=== PATIENT | female | born 1965 | race Caucasian/White ===

== ENCOUNTER → 2017-04-15 | Outpatient (CLI) | payer OTHER ==
--- NOTE | 2017-04-16 10:08 | MM ---
Reason for exam: screening (asymptomatic). Last mammogram was performed 1 year and 7 months ago. History: Patient is postmenopausal and had first child at age 34. Family history of breast cancer in mother at age 50 and breast cancer in maternal aunt at age 60. Physical Findings: A clinical breast exam by your physician is recommended on an annual basis and results should be correlated with mammographic findings. MG 3D Screening Mammo W/Cad Bilateral CC and MLO view(s) were taken. Prior study comparison: September 15, 2015, bilateral MG 3d screening mammo w/cad. September 24, 2012, CAD bilateral diagnostic mammogram. The breast tissue is heterogeneously dense. This may lower the sensitivity of mammography. There is no discrete abnormality. ASSESSMENT: Negative, BI-RAD 1 RECOMMENDATION: Routine screening mammogram of both breasts in 1 year.
== END | disposition home or self-care (01) ==
LOC: RADMAMWWP 15:51
PROVIDERS: ATTEND Family Medicine
DX: Z12.31 Encounter for screening mammogram for malignant neoplasm of breast (principal)
CPT/HCPCS: 77063; G0202

== ENCOUNTER → 2017-05-08 | Outpatient (CLI) | payer OTHER ==
--- NOTE | 2017-05-08 17:13 | MR ---
EXAMINATION TYPE: MR lumbar spine wo con DATE OF EXAM: 05/08/2017 COMPARISON: NONE HISTORY: Right Low back pain , Right Leg pain, for years TECHNIQUE: T1 and T2 axial and sagittal images of the lumbar spine are submitted. FINDINGS: There is no abnormal signal seen within the visualized spinal cord or paraspinal soft tissu es. At L1-2 there is no disc herniation, canal stenosis or foraminal encroachment. There is hypertrophic change of the facets. At L2-3 there is degenerative disc disease with hypertrophy of the facets and ligamentum flavum. Mild bilateral foraminal encroachment. No Canal stenosis. At L3-4 there is annular tear and central disc bulge or small protrusion with mild effacement of the toñito sac. Hypertrophic change of the facets and ligamentum flavum is seen. No foraminal encroachment. No Canal stenosis. At L4-5 there is moderate hypertrophy of the facets and ligamentum flavum. There is disc desiccation and annular tear. Neural foramina remain patent. Vertebral body hemangioma L4. Minimal broad-based ce ntral disc bulging. No canal stenosis. At L5-S1 there is no disc herniation, canal stenosis, or foraminal encroachment IMPRESSION: 1. Annular tear and central disc small protrusion at L3-L4 with mild effacement of thecal sac but no canal stenosis or foraminal encroachment. 2. Annular tear and broad-based disc bulging L4-L5 but no canal stenosis or foraminal encroachment. 3. Multilevel facet arthropathy.
== END | disposition home or self-care (01) ==
LOC: RADMRIMAIN 14:36
PROVIDERS: ATTEND Internal Medicine Rheumatology
DX: M51.16 Intervertebral disc disorders with radiculopathy, lumbar region (principal); M46.96 Unspecified inflammatory spondylopathy, lumbar region
CPT/HCPCS: 72148

== ENCOUNTER → 2017-09-25 | Outpatient (CLI) | payer OTHER ==
[2017-09-23 16:46] VITALS: BMI 26.7
--- NOTE | 2017-09-25 21:23 | P.CONS ---
History of Present Illness - Reason for Consult Consult date: 09/25/17 - History of Present Illness This is 52 years old female with a chronic history of severe low back pain, pain started more than 18 month,s ago , she denies any initiating event, pain intensity increased over time, she underwent physical therapy with minimal benefit, she stepped up physical therapy 3 weeks ago, intensity of the pain is 6 /10 increased with activity to 8/10, also she complained of right leg weakness, and feeling of burning sensation radiates from her back towards the right lower extremity, to the posterior lateral aspect of her right leg, she denies any fever or night sweats which she denies any change in the bowel movement or urination Past Medical History Past Medical History: Fibromyalgia, GERD/Reflux Additional Past Medical History / Comment(s): migraines History of Any Multi-Drug Resistant Organisms: None Reported Past Surgical History: Section, Tonsillectomy Additional Past Surgical History / Comment(s): sinus surgery Past Anesthesia/Blood Transfusion Reactions: Postoperative Nausea & Vomiting ( PONV) Past Psychological History: No Psychological Hx Reported Smoking Status: Never smoker Past Alcohol Use History: None Reported Past Drug Use History: None Reported - Past Family History Mother Family Medical History: Cancer Medications and Allergies Home Medications Medication Instructions Recorded Confirmed Type Ascorbic Acid [Vitamin C] 500 mg PO DAILY 09/23/17 09/25/17 History Calcium Carbonate [Calcium] 600 mg PO DAILY 09/23/17 09/25/17 History Cholecalciferol [Vitamin D3] 5,000 unit PO DAILY 09/23/17 09/25/17 History Folic Acid 1 mg PO DAILY 09/23/17 09/25/17 History Methotrexate Sodium [Methotrexate] 12.5 mg PO BARONE 09/23/17 09/25/17 History Vitamin B Complex 1 each PO DAILY 09/23/17 09/25/17 History Allergies Allergy/AdvReac Type Severity Reaction Status Date / Time amoxicillin AdvReac Mild Rapid Verified 09/25/17 12:31 Heart Rate Physical Exam Social history : not smoker , NO ETOH , NO Illegal drugs use . Review of Systems : 1- Constitutional : no chills , no fever , no night sweats , 2- Ears : no ear discharge , no change in hearing 3-Nose, Mouth ,Throat ; no bleeding gums, no sore throat , no epistaxis , 4-Cardiovascular : Denies chest pain, , no orthopnea , no palpitation 5-Respiratory : Denies cough , no dyspnea , no hemoptysis 6-Gastrointestinal :, no change in bowel habits , no coffee- ground emesis . 7-Genitourinary : No hematuria , no discharge , no incontinence, 8-Musculoskeletal : No gait dysfunction , report low back pain , 9- Neurological : no ataxia , no tremor , no sezure , 10-Psychatric , no suicidal ideation no hallucination 11- Endocrine : no cold intolerence , no polyuria , no polydypsia , 12-Hematologic : no easy bleeding , no easy brusing , 13-Allergic / immunology : no angioedema , no wheezing ,no allergic rhinitis 14-Integumentary : no brttle nails , no change hair / nails , no foot/leg ulcers . Physical Examinations : 1-Constitutional : Cooperative , not in acute distress . 2-HEENT : nech ; supple , no Lymphadenopathy , no Thyromegaly , :eyes , no icterus, no photophobia . ENT : , normal oropharynx , no Thrush 3- Respiratory : Chest clear to auscultations Bilaterally , no wheezing . 4- Cardiovascular : regular rate and rhythem , S1 , S2 , no S3 , no S4. 5- Gastrointestinal: abdomen soft no tenderness , no organomegally . 6- Genitourinary : Defferred . 7-Integumentary : No cellulitis , no ulcers , normal skin turgor , no cyanotic . 8- neurologic : Cranial nerve II to XII intact , no focal neurological deffecit 9-psychatric : alert , oriented X 3 , appropriate affect , intact judgment and insight . 10-Lymphatic : no Lymphadenopathy. 11- musculoskeltal: normal gait Cervical Spine motor stregnth in the deltoid and biceps, normal right side , normal Left side Lumber spine moter stegnth lower extremities ,thigh and legs 3-4/5 Right side , 5/5 Left side deep tendon reflexes : decreased Knee Jerk on the right side , decreased ankle Jerk on the right side positive lumber facet Loading Test Range of motion of the lumbar spine Flexion 30 degrees, extension 10 degrees strait leg raising test , positive at 30 degree on the right side ,and is negative on the left Fabere test positive RT and negative on the LT . Results Comments: MRI of the lumbar spine= L2-3 and L3-L4 or L4-L5 lumbar bulging disc disease, and lumbar facet hypertrophy, and annular tear at L3 4 Assessment and Plan Plan: Assessment and plan= lumbar radiculopathy, lumbar degenerative disc disease, lumbar facet arthropathy Patient could benefit from Lyrica 25 mg 3 times a day, ( she tried Neurontin in the past and she had side effects/depression from the Neurontin ) for this reason we can start her on Lyrica. Also patient could benefit from lumbar epidural steroid injections under fluoroscopy guidance Time with Patient: Greater than 30
== END | disposition home or self-care (01) ==
LOC: PNWHC3 11:51
PROVIDERS: ATTEND Specialist
DX: G89.29 Other chronic pain (principal); M54.5 Low back pain; M51.16 Intervertebral disc disorders with radiculopathy, lumbar region; M46.86 Other specified inflammatory spondylopathies, lumbar region; M79.7 Fibromyalgia; K21.9 Gastro-esophageal reflux disease without esophagitis; G43.909 Migraine, unspecified, not intractable, without status migrainosus; Z98.890 Other specified postprocedural states; Z79.891 Long term (current) use of opiate analgesic; Z88.0 Allergy status to penicillin
CPT/HCPCS: 99211

== ENCOUNTER 2017-10-22 06:47 | Day surgery (SDC) | payer OTHER ==
[2017-10-20 12:30] VITALS: BMI 26.6
[2017-10-22] MEDS ORDERED: LACTATED RINGERS 1,000 ML IV SCH (07:00)
[2017-10-22 07:24] VITALS: RESP 16; TEMP 98.1
[2017-10-22] MEDS ORDERED: LIDOCAINE 1% 20 ML VIAL (10MG/ML) FOR IV START INTRADERMA ONE (07:24)
[2017-10-22] MEDS ORDERED: ONDANSETRON 4 MG/2 ML VIAL IVP ONE (08:04)
--- NOTE | 2017-10-22 08:32 | P.PCN ---
Date of Procedure: 10/22/17 Procedure(s) Performed: PREOPERATIVE DIAGNOSIS: 1- Lumbar Degenerative Disc Diseases 2-Lumbar spondylosis with Facet arthropathy without myelopathy. 3-lumbar radiculopathy. POSTOPERATIVE DIAGNOSIS: 1-Lumber Degenerative Disc Diseases 2-Lumbar spondylosis with Facet arthropathy without myelopathy. 3-lumbar radiculopathy. PROCEDURE 1. Lumbar epidural steroid injection under fluoroscopic guidance at the L5-S1 level. 2. Lumbar epidurogram. ANESTHESIA: Local with 1% lidocaine 3 ml and , moderate sedation with intravenous Versed 2 mg ,and fentanyle 50 Mcg EBL: Minimal PROCEDURE INDICATION: The patient with low back pain and radiculitis symptoms unresponsive to conservative treatment. Fluoroscopy was used to optimize visualization of the needle placement and to maximize safety. PROCEDURE DESCRIPTION / TECHNIQUE: The patient was seen and identified in the preoperative area. Risks, benefits , complications including but not limited to infections ,bleeding ,allergic reaction to the medications ,nerve damage and not complete pain releife , and alternatives were discussed with the patient. The patient agreed to proceed with the procedure and signed the consent. IV was started, and vital signs were stable. Patient was taken to the OR and time out was completed. The patient was placed in the prone position on procedure table and a pillow was placed under the abdomen to reduce lumbar lordosis. The lumbosacral area was prepped and draped in the usual sterile fashion.ere closely monitored during the procedure. Conscious sedation was used during the procedure to decrease patients anxiety. Vital signs was monitered during the entire procedure. Using anterior-posterior fluoroscopy, the L5-S1 interlaminar space was identified and the skin over this site was marked and then infiltrated with 1% lidocaine subcutaneously. Subsequently, a 20-gauge Tuohy epidural needle was inserted and advanced toward the epidural space using the ``Loss of resistance technique and guided by AP and lateral fluoroscopy. The correct needle position in the epidural space was verified with the injection of 2 mL of the water soluble contrast dye Isovue 200 contrast and observing an excellent epidurogram with the epidural spread of the dye, after negative aspiration for blood and CSF and in the absence of paresthesias. Again after negative aspiration, a 6 ml mixture containing 20 mg of Dexamethasone and 2 ml of preservative free Normal Saline, and 2 ml of preservative free lidocaine 1% solution was injected and a washout of epidurogram was seen. Needle was withdrawn intact, skin was cleansed, and bandages were applied. COMPLICATIONS: None DISPOSITION / PLANS: The patient was placed in a supine position and transferred to the recovery area in a stable condition for observation. There was no evidence of lower extremity motor or sensory deficit after the procedure. Patient was discharged from the recovery room after meeting discharge criteria. Home discharge instructions were given to the patient by the staff. The patient was reexamined prior to discharge. The patient will schedule a follow up in the clinic in 2-4 weeks.
[2017-10-22] MEDS ORDERED: IV FLUID CONTINUATION 1,000 ML IV ONE (08:35)
[2017-10-22 08:53] VITALS: BP 127/84; PULSE 68
--- NOTE | 2017-10-22 09:25 | FL ---
Fluoroscopy HISTORY: Pain 4 seconds fluoroscopy time supplied to the referring clinician. 1 intraoperative C-arm images docume nt the procedure. See dictated report from anesthesia.
== END 2017-10-22 09:12 | disposition home or self-care (01) ==
LOC: ORPAIN 06:47
PROVIDERS: ATTEND Specialist
DX: G89.29 Other chronic pain (principal); K21.9 Gastro-esophageal reflux disease without esophagitis; N95.9 Unspecified menopausal and perimenopausal disorder; M51.16 Intervertebral disc disorders with radiculopathy, lumbar region; M79.7 Fibromyalgia; M47.26 Other spondylosis with radiculopathy, lumbar region; Z88.0 Allergy status to penicillin
CPT/HCPCS: 62323; J2250; J1100; J2405; J3010; Q9966; 99152

== ENCOUNTER 2017-11-19 07:58 | Day surgery (SDC) | payer OTHER ==
[2017-11-17 10:55] VITALS: BMI 26.6
[2017-11-19 08:23] VITALS: RESP 16; TEMP 97.7
[2017-11-19] MEDS ORDERED: LACTATED RINGERS 1,000 ML IV ONE (08:28)
[2017-11-19] MEDS ORDERED: LIDOCAINE 1% 20 ML VIAL (10MG/ML) FOR IV START INTRADERMA ONE (08:28)
[2017-11-19] MEDS ORDERED: ONDANSETRON 4 MG/2 ML VIAL ONE (08:30)
[2017-11-19] MEDS ORDERED: ONDANSETRON 4 MG/2 ML VIAL IVP ONE (08:32)
--- NOTE | 2017-11-19 08:56 | P.PCN ---
Date of Procedure: 11/19/17 Surgeon: Jim Womack Pathology: none sent Condition: stable Disposition: PACU Description of Procedure: PREOPERATIVE DIAGNOSIS: 1-Lumbar radiculitis. POSTOPERATIVE DIAGNOSIS: 1-Lumbar radiculitis. PROCEDURE 1. Lumbar epidural steroid injection under fluoroscopic guidance at the L4-L5 level. 2. Lumbar epidurogram. ANESTHESIA: Local with 1% lidocaine; IV sedation with Versed/fentanyl. EBL: Minimal PROCEDURE INDICATION: The patient with low back pain and radiculitis symptoms unresponsive to conservative treatment. No use of blood thinners, five days' relief from LESI #1. Fluoroscopy was used to optimize visualization of the needle placement and to maximize safety. PROCEDURE DESCRIPTION / TECHNIQUE: The patient was seen and identified in the preoperative area. Risks, benefits, complications, and alternatives were discussed with the patient, including but not limited to bleeding, infection, nerve damage, allergic reactions to medications, and incomplete pain relief. The patient agreed to proceed with the procedure and signed the consent after all questions were answered. IV was started, and vital signs were stable. Patient was taken to the OR and time out was completed to confirm patient position, procedure, laterality of pain, and allergies. The patient was placed in the prone position on procedure table and a pillow was placed under the abdomen to reduce lumbar lordosis. The lumbosacral area was prepped and draped in the usual sterile fashion. Critical pause was taken. Vital signs were closely monitored during the procedure. Conscious sedation was used during the procedure to decrease patients anxiety. Using anterior-posterior fluoroscopy, the L4-L5 interlaminar space was identified and the skin over this site was marked and then infiltrated with 1% lidocaine subcutaneously in a right paramedian fashion. Subsequently, a 20- gauge 3.5-inch Tuohy epidural needle was inserted and advanced toward the epidural space using the Loss of resistance technique and guided by AP and lateral fluoroscopy. The correct needle position in the epidural space was verified with the injection of 2 mL of the water soluble contrast dye Isovue 200 contrast and observing an excellent epidurogram with the epidural spread of the dye, after negative aspiration for blood and CSF and in the absence of paresthesias. Again after negative aspiration, a 6 ml mixture containing 40 mg of Depo Medrol and 3 ml of preservative free Normal Saline, and 2 ml of preservative free lidocaine 1% solution was injected and a washout of epidurogram was seen. Needle was withdrawn intact, skin was cleansed, and bandages were applied. COMPLICATIONS: None COMMENTS: DISPOSITION / PLANS: The patient was placed in a supine position and transferred to the recovery area in a stable condition for observation. There was no evidence of lower extremity motor or sensory deficit after the procedure. Patient was discharged from the recovery room after meeting discharge criteria. Home discharge instructions were given to the patient by the staff. The patient was reexamined prior to discharge and there were no issues. The patient will schedule LESI #3 in 3-4 weeks.
[2017-11-19] MEDS ORDERED: IV FLUID CONTINUATION 1,000 ML IV ONE (09:01)
[2017-11-19 09:04] VITALS: PULSE 71
[2017-11-19] MEDS ORDERED: LACTATED RINGERS 1,000 ML IV SCH (09:15)
[2017-11-19 09:31] VITALS: BP 120/79
--- NOTE | 2017-11-19 10:21 | FL ---
Fluoroscopy HISTORY: Pain 6 seconds fluoroscopy time supplied to the referring clinician. 3 intraoperative C-arm images docume nt the procedure. See dictated report from anesthesia.
== END 2017-11-19 09:44 | disposition home or self-care (01) ==
LOC: ORPAIN 07:58
PROVIDERS: ATTEND Anesthesiology
DX: G89.29 Other chronic pain (principal); M54.16 Radiculopathy, lumbar region; M06.9 Rheumatoid arthritis, unspecified; Z88.0 Allergy status to penicillin; Z79.899 Other long term (current) drug therapy
CPT/HCPCS: 62323; J2250; J1030; J2405; J3010; Q9966

== ENCOUNTER 2017-12-11 08:41 | Day surgery (SDC) | payer OTHER ==
[2017-12-09 09:25] VITALS: BMI 26.6
[2017-12-11 09:54] VITALS: RESP 18; TEMP 98.2
[2017-12-11] MEDS ORDERED: LIDOCAINE 1% 20 ML VIAL (10MG/ML) FOR IV START INTRADERMA ONE (10:05)
[2017-12-11] MEDS ORDERED: LACTATED RINGERS 1,000 ML IV ONE (10:05)
--- NOTE | 2017-12-11 10:49 | P.PCN ---
Date of Procedure: 12/11/17 Surgeon: Addy Reaves Description of Procedure: PREOPERATIVE DIAGNOSIS: 1- Lumbar Degenerative Disc Diseases 2-Lumbar spondylosis with Facet arthropathy without myelopathy POSTOPERATIVE DIAGNOSIS: 1-Lumber Degenerative Disc Diseases 2-Lumbar spondylosis with Facet arthropathy without myelopathy PROCEDURE Lumbar epidural steroid injection under fluoroscopic guidance at the L4-5 level. ANESTHESIA: Local with 1% lidocaine 3 ml and IV sedation with Versed 2 mg EBL: Minimal PROCEDURE INDICATION: The patient with low back pain and radiculitis symptoms unresponsive to conservative treatment. Fluoroscopy was used to optimize visualization of the needle placement and to maximize safety. She presented for her third lumbar epidural steroid injection. She reports significant benefit was given from her previous 2 injections. She continues to have pain in her back which radiates down her legs. PROCEDURE DESCRIPTION / TECHNIQUE: The patient was seen and identified in the preoperative area. Risks, benefits , complications including but not limited to infections ,bleeding ,allergic reaction to the medications ,nerve damage and not complete pain relief , and alternatives were discussed with the patient. The patient agreed to proceed with the procedure and signed the consent. IV was started, and vital signs were stable. Patient was taken to the OR and time out was completed. The patient was placed in the prone position on procedure table and a pillow was placed under the abdomen to reduce lumbar lordosis. The lumbosacral area was prepped and draped in the usual sterile fashion.ere closely monitored during the procedure. Conscious sedation was used during the procedure to decrease patient's anxiety. Vital signs was monitored during the entire procedure. Using anterior-posterior fluoroscopy, the L5-S1 interlaminar space was identified and the skin over this site was marked and then infiltrated with 1% lidocaine subcutaneously. Subsequently, a 20-gauge Tuohy epidural needle was inserted and advanced toward the epidural space using the Loss of resistance technique and guided by AP and lateral fluoroscopy. The correct needle position in the epidural space was verified with the injection of contrast. After negative aspiration for blood and CSF and in the absence of paresthesias. Again after negative aspiration, a 6 ml mixture containing 80 mg of Depo-Medrol and 3 mL of preservative-free normal saline. Needle was withdrawn intact, skin was cleansed, and bandages were applied. COMPLICATIONS: None DISPOSITION / PLANS: The patient was placed in a supine position and transferred to the recovery area in a stable condition for observation. There was no evidence of lower extremity motor or sensory deficit after the procedure. Patient was discharged from the recovery room after meeting discharge criteria. Home discharge instructions were given to the patient by the staff. The patient was reexamined prior to discharge. The patient will schedule a follow up in the clinic in 2-4 weeks.
[2017-12-11] MEDS ORDERED: IV FLUID CONTINUATION 1,000 ML IV ONE (10:55)
--- NOTE | 2017-12-11 11:12 | FL ---
EXAMINATION TYPE: FL guided pain mgmt statistic DATE OF EXAM: 12/11/2017 HISTORY: Flouroscopy time 1 seconds of fluoroscopy provided. IMPRESSION: 1. Fluoroscopy time.
[2017-12-11 11:17] VITALS: BP 128/91; PULSE 65
== END 2017-12-11 11:36 | disposition home or self-care (01) ==
LOC: ORPAIN 08:41
PROVIDERS: ATTEND Anesthesiology
DX: M51.16 Intervertebral disc disorders with radiculopathy, lumbar region (principal); M47.816 Spondylosis without myelopathy or radiculopathy, lumbar region; Z88.0 Allergy status to penicillin
CPT/HCPCS: 62323; J2250; J1030

== ENCOUNTER → 2018-01-29 | Outpatient (CLI) | payer OTHER ==
[2018-01-29 13:06] VITALS: BP 136/94; PULSE 77; RESP 16
--- NOTE | 2018-01-29 13:31 | P.PAINPG ---
Subjective Progress Note Date: 01/29/18 Principal diagnosis: Right-sided low back pain and right buttocks pain as well as leg pain down the right This a very pleasant 52-year-old woman with a history of low back pain and pain down her right leg who is undergone previous lumbar epidural steroid injections. She returns thereafter 3 these injections. She reports that she received nearly a 50% reduction of her symptoms from these injections. Now she complains of pain in her right buttocks area at a pinpoint location which radiates into her hip laterally and down her right leg on the extra dear surface. She denies any bowel or bladder dysfunction. She denies a significant myofascial weakness. She has recently participated in physical therapy is currently doing exercises at home on a daily basis. Objective - Vital Signs Vital signs: Vital Signs Temp Pulse 77 01/29/18 12:56 Resp 16 01/29/18 12:56 BP 136/94 01/29/18 12:56 Pulse Ox Intake & Output 01/28/18 01/29/18 01/29/18 18:59 06:59 18:59 Weight 77.111 kg - Exam General: The patient is alert and oriented. Patient is not sedateded Patient answers all question appropriately. Cardiac: Heart is regular in rate and rhythm Respiratory: Clear to auscultation. No audible wheezes. Abdomen: Soft nontender nondistended. Lower extremities: Strength is normal bilaterally. Sensation is normal bilaterally. Reflexes are preserved and symmetric bilaterally. Straight leg raise is negative bilaterally. She is tender to palpation over her right sacroiliac joint. Sacroiliac loading maneuvers are positive. Assessment and Plan (1) Pain of right sacroiliac joint Narrative/Plan: Plan of Care 1. Medications: Patient does not receive any pain medications from this clinic. I would not endorse the use of opiates for this clinical presentation. 2. Interventions: We will schedule the patient for right sacroiliac joint injection. 3. Referrals: None 4. Testing: None 5. Psychological: Patient denies significant depression or anxiety today. I would not refer her to a psychologist. Current Visit: Yes Status: Acute Code(s): M53.3 - SACROCOCCYGEAL DISORDERS, NOT ELSEWHERE CLASSIFIED SNOMED Code(s): 151149481 PQRS Measure Charge Sheet Measure #130: Documentation of Current Meds in Medical Chart: Patient's medications documented in chart Measure #226: Tobacco Use: Screen & Cessation Intervention: Pt not a tobacco user Measure #111: Pneumonia Vaccination: Pneumococcal vaccine NOT administered or previously given Measure #47: Advance Care Plan: Advance care planning discussed & documented, pt chose/unable to give Measure #412: Opioid Treatment Agreement: No documentation of signed opioid treatment agreement Measure #408: Opioid Therapy Follow-up Evaluation: Patient had f/u eval minimum every 3 months during opioid therapy Measure #317: Preventitive Care & Scrn High Bld Press & F/U: Normal blood pressure, f/u not required Measure #128: Body Mass Index (BMI) Screening & Follow-up: BMI documented within normal parameters Measure #131: Pain Assessment & Follow-up: Pain positive & plan documented Measure #431: Unhealthy Alcohol Use Preventative Care & Scrn: Patient not identified as an unhealthy alcohol user PQRS Narrative: Smoking Status Never smoker Do You Want the Pneumonia No Vaccine AT THIS TIME? Blood Pressure 136/94 Pain Intensity [Right Lower 4 Back] Scale Used Numeric (1 - 10) Hx Alcohol Use (MH) No Home Medications: Ambulatory Orders Ascorbic Acid [Vitamin C] 500 mg PO DAILY 09/23/17 Calcium Carbonate [Calcium] 600 mg PO DAILY 09/23/17 Cholecalciferol [Vitamin D3] 5,000 unit PO DAILY 09/23/17 Vitamin B Complex 1 each PO DAILY 09/23/17 Ibuprofen [Motrin] 600 mg PO BID 10/20/17 Magnesium 500 mg PO DAILY 11/17/17 Controlled Substance Measures - Controlled Substance Measures Is patient prescribed a controlled substance at discharge?: No
== END ==
LOC: PNWHC3 12:13
PROVIDERS: ATTEND Pain Medicine Pain Medicine
DX: M53.3 Sacrococcygeal disorders, not elsewhere classified (principal); Z79.899 Other long term (current) drug therapy; Z79.1 Long term (current) use of non-steroidal anti-inflammatories (NSAID)
CPT/HCPCS: 99211

== ENCOUNTER 2018-02-16 08:31 | Day surgery (SDC) | payer OTHER ==
[2018-02-10 14:51] VITALS: BMI 25.4
[~2018-02-16 08:31] MED LIST: LACTATED RINGERS 1,000 ML IV SCH
[2018-02-16 09:19] VITALS: RESP 16; TEMP 98.7
[2018-02-16] MEDS ORDERED: LIDOCAINE 1% 20 ML VIAL (10MG/ML) FOR IV START INTRADERMA ONE (09:19)
[2018-02-16] MEDS ORDERED: ONDANSETRON 4 MG/2 ML VIAL ONE (09:26)
[2018-02-16] MEDS ORDERED: ONDANSETRON 4 MG/2 ML VIAL IVP ONE (09:28)
--- NOTE | 2018-02-16 09:59 | P.PCN ---
Date of Procedure: 02/16/18 Surgeon: Millie Nolen Pathology: none sent Condition: stable Disposition: PACU Description of Procedure: Preoperative diagnoses= right sacroiliitis Postoperative diagnoses= same as preoperative diagnosis. Procedure= Rt sacroiliac joint steroid injection under fluoroscopic guidance. Anesthesia= conscious sedation with Versed and fentanyl and local infiltration with lidocaine 1% Estimated blood loss=minimal. Procedure indication= the patient had a history of severe chronic low back pain , diagnosed with sacroiliitis and lumbar sacral facet arthropathy unresponsive to conservative treatment. Procedure description= the patient was seen and identified in the preoperative holding area, risks and benefits and alternative of the procedure and possible complications discussed with the patient, patient signed the consent. an IV was started, and vital signs were monitored and were stable throughout the procedure , patient was placed in the prone position or table and the lumbosacral area was prepped and draped with a sterile fashion, vital signs were closely monitored during the procedure.The right sacroiliac joint was identified on the AP view of fluoroscopy then the C-arm was tilted to the left oblique position to superimpose the anterior and posterior joint lines on each other and to have a unified joint line with the target point at the inferior one third of this line. I used 22-gauge 3-1/2 inch Quincke spinal needle for this procedure and after getting into the sacroiliac joint I injected 40 mg of Depomedrol +2 MLS of Ropivacaine 0.5%. The patient returned to supine position after the back was cleaned and a Band- Aid applied, the patient transported to recovery room in stable condition and he was monitored for 30 minutes before he was discharged home.
--- NOTE | 2018-02-16 10:20 | FL ---
EXAMINATION TYPE: FL guided pain mgmt statistic DATE OF EXAM: 02/16/2018 HISTORY: Flouroscopy time 3 seconds of fluoroscopy provided. IMPRESSION: 1. Fluoroscopy time.
[2018-02-16 10:35] VITALS: BP 132/85; PULSE 61
== END 2018-02-16 11:00 | disposition home or self-care (01) ==
LOC: ORPAIN 08:31
PROVIDERS: ATTEND Anesthesiology
DX: G89.29 Other chronic pain (principal); M46.1 Sacroiliitis, not elsewhere classified; M46.97 Unspecified inflammatory spondylopathy, lumbosacral region
CPT/HCPCS: G0260; J2250; J1030; J3301; J2405; 27096

== ENCOUNTER 2018-03-10 06:54 | Day surgery (SDC) | payer OTHER ==
[2018-03-03 13:06] VITALS: BMI 25.0
[2018-03-10] MEDS ORDERED: ONDANSETRON 4 MG/2 ML VIAL ONE (08:13)
[2018-03-10 08:16] VITALS: RESP 16; TEMP 97.7
[2018-03-10] MEDS ORDERED: LIDOCAINE 1%-EPI 1:100,000 30 ML VIAL SQ ONE (08:18)
--- NOTE | 2018-03-10 08:40 | P.PCN ---
Date of Procedure: 03/10/18 Procedure(s) Performed: Preoperative diagnoses= 1-Right sacroiliitis. 2-Lumbar DDD, 3- Lumbar Facet arthropathy. Postoperative diagnoses= same as preoperative diagnosis. Procedure= Right sacroiliac joint steroid injection under fluoroscopic guidance. Anesthesia= moderate sedation with Versed 2 mg and fentanyl 50 micrograms and local infiltration with lidocaine 1% 2ml Estimated blood loss=minimal. Procedure indication= the patient had a history of severe chronic low back pain , diagnosed with right sacroiliitis and lumbar sacral facet arthropathy unresponsive to conservative treatment. Procedure description= the patient was seen and identified in the preoperative holding area, risks and benefits and alternative of the procedure and possible complications discussed with the patient, and he agreed with the preceding, patient signed the consent, an IV was started, and vital signs were monitored and were stable throughout the procedure, patient was placed in the prone position or table and the lumbosacral area was prepped and draped with a sterile fashion, vital signs were closely monitored during the procedure, the fluoroscopy camera was placed in the contralateral oblique view on the right sacroiliac joint and the lower part of the joint was identified, local infiltration of the skin and subcutaneous tissue with lidocaine 1% 2 mL then a 22-gauge Quincke-type spinal needle advanced slowly under fluoroscopy and placed in the posterior and inferior border of the right sacroiliac joint, placement confirmed with AP and lateral view, and after appropriate needle placement confirmed and after negative aspiration for heme and CSF and there was no paresthesia during the injection, 3 ml of Marcaine 0.5% and 40 mg of Kenalog injected after negative aspiration, the needle removed, Patient tolerated the procedure well without any complication, The patient returned to supine position after the back was cleaned and a Band- Aid applied, the patient transported to recovery room in stable condition and he was monitored for 30 minutes before he was discharged home and then patient was reexamined before going home and patient was discharged in stable condition and patient will follow up with the pain clinic in a few weeks
[2018-03-10] MEDS ORDERED: ONDANSETRON 4 MG/2 ML VIAL IVP STA (08:41)
[2018-03-10] MEDS ORDERED: IV FLUID CONTINUATION 1,000 ML IV ONE (08:45)
--- NOTE | 2018-03-10 08:57 | FL ---
EXAMINATION TYPE: FL guided pain mgmt statistic DATE OF EXAM: 03/10/2018 HISTORY: Flouroscopy time 1 seconds of fluoroscopy provided. IMPRESSION: 1. Fluoroscopy time.
[2018-03-10 09:11] VITALS: BP 135/77; PULSE 48
== END 2018-03-10 09:28 | disposition home or self-care (01) ==
LOC: ORPAIN 06:54
PROVIDERS: ATTEND Specialist
DX: M46.1 Sacroiliitis, not elsewhere classified (principal); M51.36 Other intervertebral disc degeneration, lumbar region; Z88.0 Allergy status to penicillin
CPT/HCPCS: J2250; J3301; J2405; J3010; G0260; 27096

== ENCOUNTER 2018-04-18 10:35 | Emergency (ER) | payer OTHER ==
[2018-04-18 10:42] VITALS: BP 143/84; PULSE 64; RESP 20; TEMP 98.9
[2018-04-18] MEDS ORDERED: DIPH,PERTUS(ACELL)TETVAC-LF 0.5 ML VIAL IM ONE (10:56)
[2018-04-18] MEDS ORDERED: PROPARACAINE 0.5% OPHTH DROPS 15 ML BTL RIGHT EYE STA (10:56)
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
[2018-04-18] MEDS: KETOROLAC 30 MG/ML 1 ML VIAL IM STA ×2 (11:20→11:32)
--- NOTE | 2018-04-18 11:23 | XR ---
EXAMINATION TYPE: XR hand complete LT, XR wrist complete LT , 7 VIEWS DATE OF EXAM ORDERED: 04/18/2018 HISTORY: Pain. COMPARISON: None. FINDINGS: There is minor degenerative change in the triscaphe joint. No fracture or dislocation is s een. Osseous structures about the hand are normal. IMPRESSION: 1. NO ACUTE OSSEOUS LESION. 2. MILD DEGENERATIVE CHANGE.
--- NOTE | 2018-04-18 11:24 | XR ---
EXAMINATION TYPE: XR chest 2V DATE OF EXAM: 04/18/2018 HISTORY: Pain. REFERENCE: Previous study dated 12/08/2014. FINDINGS: The lungs are clear. Pleural spaces are clear. The heart is not enlarged. IMPRESSION: NO ACTIVE CARDIOPULMONARY ABNORMALITY.
--- NOTE | 2018-04-18 11:25 | XR ---
EXAMINATION TYPE: XR lumbar spine 2 or 3V , 3 VIEWS DATE OF EXAM ORDERED: 04/18/2018 HISTORY: Pain. COMPARISON: None. FINDINGS: There is a gentle dextroscoliosis. Vertebral body height and alignment are maintained. There is no spondylolysis or spondylolisthesis. N o fractures are identified. There is mild hypertrophic spondylosis anteriorly at L3-4. The pedicles a re intact. IMPRESSION: 1. NO ACUTE OSSEOUS LESION. 2. MILD DEGENERATIVE CHANGE.
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
== END 2018-04-18 13:39 | disposition home or self-care (01) ==
LOC: EC 10:35
DX: E04.1 Nontoxic single thyroid nodule (principal); S61.512A Laceration without foreign body of left wrist, initial encounter; S61.412A Laceration without foreign body of left hand, initial encounter; M51.26 Other intervertebral disc displacement, lumbar region; R07.81 Pleurodynia; M54.2 Cervicalgia; H57.8 Other specified disorders of eye and adnexa; M54.5 Low back pain; Z88.0 Allergy status to penicillin; Z79.1 Long term (current) use of non-steroidal anti-inflammatories (NSAID); Z79.899 Other long term (current) drug therapy; Z87.39 Personal history of other diseases of the musculoskeletal system and connective tissue; Z98.890 Other specified postprocedural states; Z23 Encounter for immunization; V49.49XA Driver injured in collision with other motor vehicles in traffic accident, initial encounter; Y92.410 Unspecified street and highway as the place of occurrence of the external cause
CPT/HCPCS: 71046; 72100; 72125; 72131; 90471; 90715; 96372; 99284

== ENCOUNTER → 2018-05-06 | Outpatient (CLI) | payer OTHER ==
--- NOTE | 2018-05-06 15:47 | US ---
EXAMINATION TYPE: US thyroid st tissue head/neck DATE OF EXAM: 05/06/2018 COMPARISON: NONE CLINICAL HISTORY: E04.1 Nontoxic single thyroid nodule. nodule seen on recent ct, normal labs GLAND SIZE: Right Lobe: 5.8 x 1.9 x 2.2 cm Overall Parenchyma: heterogenous Left Lobe: 5.5 x 1.4 x 1.1 cm Overall Parenchyma: heterogeneous Isthmus Thickness: 0.2 cm NODULES RIGHT: # of nodules measured on right: 2 1. 1.8 X 1.2 x 1.1 cm hypoechoic solid nodule at the mid pole with well-defined margins. This nodu le is wider than tall and shows intranodular vascularity. Prior size: NET MENDER 2. 2.1 X 2.0 x 1.6 cm hypoechoic solid nodule at the lower pole with well-defined margins. This nod ule is wider than tall and shows intranodular vascularity. Prior size: NET MENDER LEFT: # of nodules measured on left: 0 ISTHMUS: # of nodules measured in the isthmus: 0 Bilateral neck scanned, no evidence of lymphadenopathy. IMPRESSION: Two right thyroid nodules, the largest measures 2.1 cm in the inferior thyroid gland and is diffusely hyperemic. Percutaneous biopsy is recommended of this nodule. There is also thyromegaly.
== END | disposition home or self-care (01) ==
LOC: RADUSWWP 13:11
PROVIDERS: ATTEND Family Medicine
DX: E04.2 Nontoxic multinodular goiter (principal)
CPT/HCPCS: 76536

== ENCOUNTER → 2018-09-08 | Outpatient (CLI) | payer BC ==
--- NOTE | 2018-09-09 10:04 | MM ---
Reason for exam: screening (asymptomatic). Last mammogram was performed 1 year and 5 months ago. History: Patient is postmenopausal and had first child at age 34. Family history of breast cancer in mother at age 50 and breast cancer in maternal aunt at age 60. Physical Findings: A clinical breast exam by your physician is recommended on an annual basis and results should be correlated with mammographic findings. MG 3D Screening Mammo W/Cad Bilateral CC and MLO view(s) were taken. Prior study comparison: April 15, 2017, bilateral MG 3d screening mammo w/cad. September 15, 2015, bilateral MG 3d screening mammo w/cad. The breast tissue is heterogeneously dense. This may lower the sensitivity of mammography. There is no discrete abnormality. No significant changes when compared with prior studies. ASSESSMENT: Negative, BI-RAD 1 RECOMMENDATION: Routine screening mammogram of both breasts in 1 year.
== END | disposition home or self-care (01) ==
LOC: RADMAMWWP 11:27
PROVIDERS: ATTEND Family Medicine
DX: Z12.31 Encounter for screening mammogram for malignant neoplasm of breast (principal)
CPT/HCPCS: 77063; 77067

== ENCOUNTER → 2018-12-01 | Outpatient (CLI) | payer BC ==
[2018-12-01 12:40] VITALS: BP 135/87; PULSE 71; RESP 16
--- NOTE | 2018-12-01 13:05 | P.PN ---
Subjective Progress Note Date: 12/01/18 Viky is a 53-year-old female presents today for follow-up. She presents today with a chief complaint of right-sided low back pain. She's had this complaint in the past which was significantly improved with an SI joint injection on the right side. She reports her symptoms were completely resolved for about 6 or 8 months. 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 She completed the pain over the right side of low back which radiates into her right groin. She reports some numbness and tingling in the right leg along with some associated weakness secondary to pain. She denies any significant weakness in her foot or any new symptoms. She has a history of chronic neuropathy in both hands and feet which she reports she's seen multiple doctors for. She is requesting to have a repeated SI joint injection as she had significant improvement Objective - Vital Signs Vital signs: Vital Signs Temp Pulse 71 12/01/18 12:32 Resp 16 12/01/18 12:32 BP 135/87 12/01/18 12:32 Pulse Ox 99 12/01/18 12:32 Intake & Output 11/30/18 12/01/18 12/01/18 18:59 06:59 18:59 Weight 78.018 kg - Exam General: Awake and alert oriented 3 no distress Respiratory exam: No audible wheezing no accessory muscle usage Cardiovascular exam: regular rate, palpable bilateral pulses, no lower extremity edema Abdominal exam: No distention nontender to palpation Cervical spine: Normal alignment, Spurling's negative, facet loading negative, Labor Economist strength is 5/5, hollingsworth negative Lumbar spine: Normal lumbar lordosis, normal alignment, tender to palpation over bilateral paraspinal muscles, facet loading is negative bilaterally. Straight leg raise is negative. Limited range of motion due to pain with flexion, extension and side bending. Sacroiliac joints: Right side is tender to palpation, Kelin's test positive, Gaenselon is positive Neuro exam: Normal sensation in bilateral upper extremities, deep tendon reflexes are 2+ bilateral upper extremities. Normal sensation in bilateral lower extremities. Deep tendon reflexes are 2+ in lower extremities Psych exam: Cooperative, appropriate mood Assessment and Plan Assessment: #1 sacroiliitis Plan: At this point we'll repeat the SI joint and the right side. I've also given her prescription for alpha lipoic acid 600 mg which can be bought [id number] for her neuropathy. I advised her to give that a try for one months time and see if that improves her neuropathic symptoms.
== END | disposition home or self-care (01) ==
LOC: PNWHC3 12:25
PROVIDERS: ATTEND Hospitalist
DX: M46.1 Sacroiliitis, not elsewhere classified (principal); G62.9 Polyneuropathy, unspecified
CPT/HCPCS: 99211

== ENCOUNTER 2018-12-15 06:13 | Day surgery (SDC) | payer BC, OTHER ==
[2018-12-10 15:23] VITALS: BMI 26.9
[2018-12-15 06:36] VITALS: RESP 16; TEMP 98
--- NOTE | 2018-12-15 06:54 | P.PCN ---
Date of Procedure: 12/15/18 Anesthesia: none Description of Procedure: Procedure: Sacroiliac joint injection right Preoperative diagnosis: Sacroiliitis Postoperative diagnosis: Sacroiliitis Complications: none Anesthesia: 1% lidocaine 5cc Description of the procedure: procedure risk and benefits discussed with the patient, including but not limited, risk of infection and bleeding, and allergic reaction to the medication and incomplete pain relief. Patient agreed and signed consent. Patient was taken to the room and placed in a prone position. Chlorhexidine was used to cleanse the skin. Under sterile conditions patient skin was anesthetized 1% lidocaine. Subcutaneous tissues were also anesthetized with a total 5 mL of 1% lidocaine. After that, a 22-gauge spinal needle was advanced through the anesthetized location under fluoroscopic guidance. Needle was advanced into the inferior portion of the sacroiliac joint. IV contrast was used to confirm spread within the joint. After adequate spread was achieved, 2.5 ML's of 0.5% ropivacaine with 40 mg of triamcinolone was injected into the joint. Patient tolerated the procedure well. Sent to the recovery room in stable condition. The patient will follow up as needed in the clinic
[2018-12-15 07:28] VITALS: BP 120/84; PULSE 70
--- NOTE | 2018-12-15 14:28 | FL ---
Fluoroscopy HISTORY: Pain 6 seconds fluoroscopy time supplied to the referring clinician. 1 intraoperative C-arm images docume nt the procedure. See dictated report from anesthesia.
== END 2018-12-15 07:38 | disposition home or self-care (01) ==
LOC: ORPAIN 06:13
PROVIDERS: ATTEND Hospitalist
DX: M46.1 Sacroiliitis, not elsewhere classified (principal); Z78.0 Asymptomatic menopausal state
CPT/HCPCS: 27096; J1030; Q9966

== ENCOUNTER 2019-01-29 08:30 | Day surgery (SDC) | payer BC, OTHER ==
[2019-01-29 09:07] VITALS: TEMP 98
[2019-01-29 10:32] VITALS: RESP 16
--- NOTE | 2019-01-29 11:09 | US ---
ULTRASOUND GUIDED FNA THYROID BIOPSY: CLINICAL HISTORY: Request for 2 right-sided thyroid biopsy FINDINGS: The procedure was explained to the patient. The risks, complications, benefits and alternatives were discussed and any questions were answered. Informed consent was obtained. Patient was placed supin e on the ultrasound table and prepped and draped in the usual sterile fashion. Utilizing a 25 gauge needle, five passes were made into the requested 2 right-sided thyroid nodules. Patient was stable throughout the procedure. Pathology is pending. All elements of maximal barrier technique were utilized. IMPRESSION: 1. Successful ultrasound guided FNA thyroid biopsy.
[2019-01-29 11:13] VITALS: BP 143/84; PULSE 64
[2019-01-29 16:12] LABS: Thyroid Peroxidase Antibodies 1893.7 U/mL (0.0-60.0)
== END 2019-01-29 11:15 | disposition home or self-care (01) ==
LOC: RADPROMAIN 08:30
PROVIDERS: ATTEND Otolaryngology
DX: E04.1 Nontoxic single thyroid nodule (principal); R13.10 Dysphagia, unspecified
CPT/HCPCS: 10005; 10006; 84443; 86376; 86800; 88173; 88305

== ENCOUNTER 2019-03-01 14:35 | Inpatient (IN) | payer BC, OTHER ==
--- NOTE | 2019-03-01 15:15 | ED ---
General Adult HPI - General Chief complaint: Neuro Symptoms/Deficit Stated complaint: Weakness Time Seen by Provider: 03/01/19 14:45 Source: patient, RN notes reviewed Mode of arrival: ambulatory Limitations: no limitations - History of Present Illness Initial comments: Patient is a pleasant 53-year-old female presenting to the emergency department weakness. Onset of symptoms was close to 3 weeks ago. Patient has weakness mostly of her upper arms. Patient states this has progressed over the time. Patient states over the past few days she is starting to get mild weakness of her legs. Patient does have some tingling of her hands without loss of sensation. No leg tingling. Patient does have chronic neck and back problems. Patient states she is also feeling like she is off balance when she is walking. No headache. No confusion. No speech problems. Patient does work as a speech therapist - Related Data Home Medications Medication Instructions Recorded Confirmed Ascorbic Acid [Vitamin C] 500 mg PO DAILY 09/23/17 03/01/19 Calcium Carbonate [Calcium] 600 mg PO DAILY 09/23/17 03/01/19 Cholecalciferol [Vitamin D3] 5,000 unit PO DAILY 09/23/17 03/01/19 Vitamin B Complex 1 cap PO DAILY 09/23/17 03/01/19 Ibuprofen [Motrin] 600 mg PO BID PRN 10/20/17 03/01/19 Magnesium 500 mg PO DAILY 11/17/17 03/01/19 Lidocaine 4% Cream [Lmx 4] 1 applic TOPICAL DAILY PRN 04/18/18 03/01/19 Baclofen [Lioresal] 10 mg PO TID PRN 03/01/19 03/01/19 methylPREDNISolone [Medrol Dose 4 mg PO DIRECTED 03/01/19 03/01/19 Pack] Allergies Allergy/AdvReac Type Severity Reaction Status Date / Time amoxicillin AdvReac Mild Rapid Verified 03/01/19 15:05 Heart Rate Review of Systems ROS Statement: Those systems with pertinent positive or pertinent negative responses have been documented in the HPI. ROS Other: All systems not noted in ROS Statement are negative. Constitutional: Denies: fever Eyes: Denies: eye pain ENT: Denies: ear pain Respiratory: Denies: cough Cardiovascular: Denies: chest pain Endocrine: Denies: fatigue Gastrointestinal: Denies: abdominal pain Genitourinary: Denies: dysuria Musculoskeletal: Reports: as per HPI Skin: Denies: rash Neurological: Reports: weakness, paresthesias, abnormal gait. Denies: headache, confusion Past Medical History Past Medical History: Fibromyalgia, GERD/Reflux Additional Past Medical History / Comment(s): Migraines. BULDGING DISCS, PINCHED NERVES - PAIN IN LOWER BACK & LEGS; NT ARMS & LEGS, RIGHT SIDE WORSE.- STATES IMPROVEMENT SINCE LAST PAIN CLINIC PROCEDURE. History of Any Multi-Drug Resistant Organisms: None Reported Past Surgical History: Section, Orthopedic Surgery, Tonsillectomy Additional Past Surgical History / Comment(s): Sinus surgery. Bilateral Carpal Tunnel., PAIN CLINIC PROCEDURES Past Anesthesia/Blood Transfusion Reactions: Family History of Problems w/ Anesthesia, Postoperative Nausea & Vomiting (PONV) Additional Past Anesthesia/Blood Transfusion Reaction / Comment(s): PATIENT WOKE UP DURING CARPAL TUNNEL SURGERY. MOTHER HAS PONV. Past Psychological History: No Psychological Hx Reported Smoking Status: Never smoker Past Alcohol Use History: Occasional Past Drug Use History: None Reported - Past Family History Mother Family Medical History: Cancer General Exam Limitations: no limitations General appearance: alert, in no apparent distress Head exam: Present: atraumatic Eye exam: Present: normal appearance, PERRL ENT exam: Present: normal oropharynx Neck exam: Present: normal inspection, other (Mild diffuse tenderness of the cervical spine) Respiratory exam: Present: normal lung sounds bilaterally Cardiovascular Exam: Present: regular rate, normal rhythm GI/Abdominal exam: Present: soft. Absent: tenderness Extremities exam: Present: normal inspection Neurological exam: Present: alert, oriented X3, CN II-XII intact Expanded Neurological exam: Present: protecting the airway Patient oriented to: Present: person, place, time Speech: Present: fluid speech Cranial nerves: EOM's Intact: Normal Sensory exam: Upper Extremity Light Touch: Normal, Lower Extremity Light Touch: Normal Motor strength exam: RUE: 3, LUE: 3, RLE: 5, LLE: 5 Eye Response: (4) open spontaneously Motor Response: (6) obeys commands Verbal Response: (5) oriented Psychiatric exam: Present: normal affect, normal mood Skin exam: Present: normal color Course Vital Signs 03/01/19 03/01/19 03/01/19 14:39 15:32 17:06 Temperature 98.1 F Pulse Rate 84 78 71 Respiratory 18 18 16 Rate Blood Pressure 153/108 145/102 141/112 O2 Sat by Pulse 99 96 98 Oximetry 03/01/19 17:39 Temperature Pulse Rate 78 Respiratory 18 Rate Blood Pressure 128/96 O2 Sat by Pulse 98 Oximetry - Reevaluation(s) Reevaluation #1: 03/01/19 16:39 Case was discussed with Dr. Evans who does request discussing case with neurology. Case was discussed with Dr. Piña, who will consult on patient and is okay with keeping patient here. She does request lumbar puncture with cell count, glucose, and protein levels. 03/01/19 18:04 Dr. Evans paged for admission. EKG Findings - EKG Comments: EKG Findings:: Normal sinus rhythm 77. MI 140. QRS 94. QT 370. QTc 418. Normal axis. Normal QRS. No acute ST change. Procedures - Lumbar Puncture Consent Obtained: verbal consent Indication for Procedure: other (Weakness) Patient Position: sitting upright/leaning forward Skin Prep: Povidone-Iodine 1% Local Anesthetic Used: Lidocaine 1% Interspace Used: L4-L5 Fluid Initially Obtained: clear Complications: none Patient Tolerated Procedure: well, no complications Medical Decision Making - Lab Data Result diagrams: 03/01/19 15:18 03/01/19 15:18 Lab Results 03/01/19 03/01/19 03/01/19 Range/Units 15:18 15:18 15:18 WBC 7.9 (3.8-10.6) k/uL RBC 4.64 (3.80-5.40) m/uL Hgb 14.4 (11.4-16.0) gm/dL Hct 42.9 (34.0-46.0) % MCV 92.5 (80.0-100.0) fL MCH 31.0 (25.0-35.0) pg MCHC 33.5 (31.0-37.0) g/dL RDW 12.7 (11.5-15.5) % Plt Count 239 (150-450) k/uL Neutrophils % 65 % Lymphocytes % 25 % Monocytes % 5 % Eosinophils % 3 % Basophils % 1 % Neutrophils # 5.1 (1.3-7.7) k/uL Lymphocytes # 2.0 (1.0-4.8) k/uL Monocytes # 0.4 (0-1.0) k/uL Eosinophils # 0.2 (0-0.7) k/uL Basophils # 0.1 (0-0.2) k/uL ESR 8 (0-20) mm/hr PT 10.1 (9.0-12.0) sec INR 0.9 (<1.2) APTT 23.9 (22.0-30.0) sec Sodium 140 (137-145) mmol/L Potassium 5.5 H (3.5-5.1) mmol/L Chloride 104 (98-107) mmol/L Carbon Dioxide 27 (22-30) mmol/L Anion Gap 9 mmol/L BUN 17 (7-17) mg/dL Creatinine 0.74 (0.52-1.04) mg/dL Est GFR (CKD-EPI)AfAm >90 (>60 ml/min/1.73 sqM) Est GFR (CKD-EPI)NonAf >90 (>60 ml/min/1.73 sqM) Glucose 94 (74-99) mg/dL Calcium 10.1 (8.4-10.2) mg/dL Total Bilirubin 1.2 (0.2-1.3) mg/dL AST 89 H (14-36) U/L ALT 84 H (9-52) U/L Alkaline Phosphatase 82 (38-126) U/L Creatine Kinase 148 H (30-135) U/L C-Reactive Protein <5.0 (<10.0) mg/L Total Protein 9.0 H (6.3-8.2) g/dL Albumin 5.0 (3.5-5.0) g/dL Urine Color Urine Appearance (Clear) Urine pH (5.0-8.0) Ur Specific [place] (1.001-1.035) Urine Protein (Negative) Urine Glucose (UA) (Negative) Urine Ketones (Negative) Urine Blood (Negative) Urine Nitrite (Negative) Urine Bilirubin (Negative) Urine Urobilinogen (<2.0) mg/dL Ur Leukocyte Esterase (Negative) Urine RBC (0-5) /hpf Urine WBC (0-5) /hpf Ur Squamous Epith Cells (0-4) /hpf Urine Mucus (None) /hpf 03/01/19 Range/Units 15:34 WBC (3.8-10.6) k/uL RBC (3.80-5.40) m/uL Hgb (11.4-16.0) gm/dL Hct (34.0-46.0) % MCV (80.0-100.0) fL MCH (25.0-35.0) pg MCHC (31.0-37.0) g/dL RDW (11.5-15.5) % Plt Count (150-450) k/uL Neutrophils % % Lymphocytes % % Monocytes % % Eosinophils % % Basophils % % Neutrophils # (1.3-7.7) k/uL Lymphocytes # (1.0-4.8) k/uL Monocytes # (0-1.0) k/uL Eosinophils # (0-0.7) k/uL Basophils # (0-0.2) k/uL ESR (0-20) mm/hr PT (9.0-12.0) sec INR (<1.2) APTT (22.0-30.0) sec Sodium (137-145) mmol/L Potassium (3.5-5.1) mmol/L Chloride (98-107) mmol/L Carbon Dioxide (22-30) mmol/L Anion Gap mmol/L BUN (7-17) mg/dL Creatinine (0.52-1.04) mg/dL Est GFR (CKD-EPI)AfAm (>60 ml/min/1.73 sqM) Est GFR (CKD-EPI)NonAf (>60 ml/min/1.73 sqM) Glucose (74-99) mg/dL Calcium (8.4-10.2) mg/dL Total Bilirubin (0.2-1.3) mg/dL AST (14-36) U/L ALT (9-52) U/L Alkaline Phosphatase (38-126) U/L Creatine Kinase (30-135) U/L C-Reactive Protein (<10.0) mg/L Total Protein (6.3-8.2) g/dL Albumin (3.5-5.0) g/dL Urine Color Yellow Urine Appearance Clear (Clear) Urine pH 5.0 (5.0-8.0) Ur Specific [place] 1.023 (1.001-1.035) Urine Protein Negative (Negative) Urine Glucose (UA) Negative (Negative) Urine Ketones Negative (Negative) Urine Blood Moderate H (Negative) Urine Nitrite Negative (Negative) Urine Bilirubin Negative (Negative) Urine Urobilinogen <2.0 (<2.0) mg/dL Ur Leukocyte Esterase Negative (Negative) Urine RBC 1 (0-5) /hpf Urine WBC 1 (0-5) /hpf Ur Squamous Epith Cells 1 (0-4) /hpf Urine Mucus Occasional H (None) /hpf - Radiology Data Radiology results: report reviewed (Computed tomography scan the brain reveals no acute process) Disposition Clinical Impression: Weakness Disposition: ADMITTED IP TO THIS HOSP Is patient prescribed a controlled substance at d/c from ED?: No Referrals: Sonia Pringle III, MD [Primary Care Provider] - 1-2 days Decision Time: 18:04
[2019-03-01 15:23] LABS: Basophils # (A) 0.1 k/uL (0-0.2); Basophils % (A) 1 %; Eosinophils # (A) 0.2 k/uL (0-0.7); Eosinophils % (A) 3 %; HCT 42.9 % (34.0-46.0); HGB 14.4 gm/dL (11.4-16.0); Lymphocytes % (A) 25 %; MCHC 33.5 g/dL (31.0-37.0); MCV 92.5 fL (80.0-100.0); Mean Platelet Volume 8.4; Monocytes # (A) 0.4 k/uL (0-1.0); Monocytes % (A) 5 %; Neutrophils # (A) 5.1 k/uL (1.3-7.7); Neutrophils % (A) 65 %; Platelet Count 239 k/uL (150-450); RBC 4.64 m/uL (3.80-5.40); RDW 12.7 % (11.5-15.5); WBC 7.9 k/uL (3.8-10.6)
--- NOTE | 2019-03-01 15:29 | CT ---
EXAMINATION TYPE: CT brain wo con DATE OF EXAM: 03/01/2019 COMPARISON: None. HISTORY: arm weakness/neck pain x [address] DLP: 1070.4 mGycm. Automated Exposure Control for Dose Reduction was Utilized. TECHNIQUE: CT scan of the head is performed without contrast. FINDINGS: There is no acute intracranial hemorrhage, mass effect, or midline shift identified. The ventricles and sulci are within normal limits in size. Baum-white matter differentiation is maintain ed The globes are intact and the visualized sinuses are clear. IMPRESSION: No acute intracranial hemorrhage or midline shift shift is seen.
[2019-03-01 15:32] LABS: INR 0.9 (<1.2); Partial Thromboplastin Time 23.9 sec (22.0-30.0); Prothrombin Time 10.1 sec (9.0-12.0)
[2019-03-01 15:37] LABS: ALT 84 U/L (9-52); AST 89 U/L (14-36); African American GFR (CKD) >90 (>60 ml/min/1.73 sqM); Alkaline Phosphatase 82 U/L (38-126); Anion Gap 9 mmol/L; Blood Urea Nitrogen 17 mg/dL (7-17); C Reactive Protein <5.0 mg/L (<10.0); Calcium 10.1 mg/dL (8.4-10.2); Carbon Dioxide 27 mmol/L (22-30); Chloride 104 mmol/L (98-107); Creatine Kinase 148 U/L (30-135); Glucose 94 mg/dL (74-99); Potassium 5.5 mmol/L (3.5-5.1); Sodium 140 mmol/L (137-145); Total Bilirubin 1.2 mg/dL (0.2-1.3)
[2019-03-01 16:02] LABS: Appearance,Urine Clear (Clear); Bilirubin,Urine Negative (Negative); Blood,Urine Moderate (Negative); Color,Urine Yellow; Glucose,Urine (UA) Negative (Negative); Ketones,Urine Negative (Negative); Leukocyte Esterase,Urine Negative (Negative); Mucus,Urine Occasional /hpf; Nitrite,Urine Negative (Negative); Protein,Urine Negative (Negative); RBC,Urine 1 /hpf (0-5); Specific Gravity,Urine 1.023 (1.001-1.035); Squamous Epithelial Cell,Urine 1 /hpf (0-4); Urobilinogen,Urine <2.0 mg/dL (<2.0); WBC,Urine 1 /hpf (0-5)
[2019-03-01 16:07] LABS: Erythrocyte Sedimentation Rate 8 mm/hr (0-20)
[2019-03-01] MEDS ORDERED: LORazepam 2 MG/ML INJ IV STA (16:48)
[2019-03-01 18:25] LABS: Glucose,CSF 53 mg/dL (40-70); Total Protein,CSF 55 mg/dL (12-60)
[2019-03-01 18:30] LABS: CSF Tube Number 4
[2019-03-01 18:31] LABS: Appearance,CSF Clear; Nucleated Cells, CSF 0 u/L (0-5); Red Blood Cell,CSF 0 u/L (0-10)
[2019-03-01] MEDS ORDERED: ACETAMINOPHEN TAB 325 MG TAB PO PRN (19:51)
[2019-03-01] MEDS: SODIUM CHLORIDE 0.9% 1,000 ML IV SCH (20:13)
[2019-03-02 03:25] LABS: Cholesterol 232 mg/dL (<200); HDL Cholesterol 69 mg/dL (40-60); LDL Cholesterol,Calculated 125 mg/dL (0-99); Triglycerides 188 mg/dL (<150)
[2019-03-02] MEDS: SODIUM CHLORIDE 0.9% 1,000 ML IV SCH ×2 (04:30→14:24)
--- NOTE | 2019-03-02 12:36 | P.HPIM ---
History of Present Illness This is a pleasant 53 years old female with past medical history of fibromyalgia, GERD, migraines, presents because of a 3 week history of bilateral upper extremity weakness with mild tingling and numbness in her hands and toes are extending her elbows. She denies pain. Patient denies other complaints like denies chest pain, denies dyspnea. No abdominal pain. No dysuria or change in frequency, No nausea vomiting. No fever. Patient is hemodynamically stable. On admission Vitas looks stable, labs is unremarkable except for mild hyperkalemia at 5.5 with normal creatinine. Liver enzymes is mildly elevated at AST 89 and ALT 84. Elevated lipid profile. She has lumbar puncture with negative spinal tapfor RBCs, nucleated cells,whilke glucose and protein CSF are within normal limits. On admission patient was started on normal saline 100 L/h Review of Systems CONSTITUTIONAL: No fever, no malaise, no fatigue. HEENT: No recent visual problems or hearing problems. Denied any sore throat. CARDIOVASCULAR: No orthopnea, PND, no palpitations, no syncope. PULMONARY: No shortness of breath, no cough, no hemoptysis. GASTROINTESTINAL: No diarrhea, no nausea, no vomiting, no abdominal pain. Normoactive bowel sounds. NEUROLOGICAL: No headaches, no weakness, no numbness. HEMATOLOGICAL: Denies any bleeding or petechiae. GENITOURINARY: Denies any burning micturition, frequency, or urgency. MUSCULOSKELETAL/RHEUMATOLOGICAL: Denies any joint pain, swelling, or any muscle pain. ENDOCRINE: Denies any polyuria or polydipsia. Past Medical History Past Medical History: Fibromyalgia, GERD/Reflux Additional Past Medical History / Comment(s): Migraines. BULDGING DISCS, PINCHED NERVES - PAIN IN LOWER BACK & LEGS; NT ARMS & LEGS, RIGHT SIDE WORSE.- STATES IMPROVEMENT SINCE LAST PAIN CLINIC PROCEDURE. History of Any Multi-Drug Resistant Organisms: None Reported Past Surgical History: Section, Orthopedic Surgery, Tonsillectomy Additional Past Surgical History / Comment(s): Sinus surgery. Bilateral Carpal Tunnel., PAIN CLINIC PROCEDURES Past Anesthesia/Blood Transfusion Reactions: Family History of Problems w/ Anesthesia, Postoperative Nausea & Vomiting (PONV) Additional Past Anesthesia/Blood Transfusion Reaction / Comment(s): PATIENT WOKE UP DURING CARPAL TUNNEL SURGERY. MOTHER HAS PONV. Past Psychological History: No Psychological Hx Reported Smoking Status: Never smoker Past Alcohol Use History: Occasional Past Drug Use History: None Reported - Past Family History Mother Family Medical History: Cancer Medications and Allergies Home Medications Medication Instructions Recorded Confirmed Type Ascorbic Acid [Vitamin C] 500 mg PO DAILY 09/23/17 03/01/19 History Calcium Carbonate [Calcium] 600 mg PO DAILY 09/23/17 03/01/19 History Cholecalciferol [Vitamin D3] 5,000 unit PO DAILY 09/23/17 03/01/19 History Vitamin B Complex 1 cap PO DAILY 09/23/17 03/01/19 History Ibuprofen [Motrin] 600 mg PO BID PRN 10/20/17 03/01/19 History Magnesium 500 mg PO DAILY 11/17/17 03/01/19 History Lidocaine 4% Cream [Lmx 4] 1 applic TOPICAL DAILY PRN 04/18/18 03/01/19 History Baclofen [Lioresal] 10 mg PO TID PRN 03/01/19 03/01/19 History methylPREDNISolone [Medrol Dose 4 mg PO DIRECTED 03/01/19 03/01/19 History Pack] Allergies Allergy/AdvReac Type Severity Reaction Status Date / Time amoxicillin AdvReac Mild Rapid Verified 03/01/19 15:05 Heart Rate Physical Exam Vitals: Vital Signs Temp Pulse Pulse Resp BP BP Pulse Ox 03/02/19 06:02 97.8 F 69 17 110/69 95 03/01/19 21:51 98 03/01/19 20:33 98.0 F 76 16 138/89 97 03/01/19 18:35 98.8 F 76 18 138/96 98 03/01/19 17:39 78 18 128/96 98 03/01/19 17:06 71 16 141/112 98 03/01/19 15:32 78 18 145/102 96 03/01/19 14:39 98.1 F 84 18 153/108 99 Intake and Output 03/01/19 03/02/19 03/02/19 22:59 06:59 14:59 Intake Total 600 120 Balance 600 120 Intake: Oral 600 120 Other: # Voids 1 2 GENERAL: The patient is alert and oriented x3, not in any acute distress. Well developed, well nourished. HEENT: Pupils are round and equally reacting to light. EOMI. No scleral icterus. No conjunctival pallor. Normocephalic, atraumatic. No pharyngeal erythema. No thyromegaly. CARDIOVASCULAR: S1 and S2 present. No murmurs, rubs, or gallops. PULMONARY: Chest is clear to auscultation, no wheezing or crackles. ABDOMEN: Soft, nontender, nondistended, normoactive bowel sounds. No palpable organomegaly. MUSCULOSKELETAL: No joint swelling or deformity. EXTREMITIES: No cyanosis, clubbing, or pedal edema. -NEUROLOGICAL: Alert awake and oriented to time place and person, neurological exam of the cranial nerves as grossly intact. Strength showing weakness in both upper extremities 3/5, right lower extremity 5/5. No abnormal sensation. SKIN: No rashes. Results CBC & Chem 7: 03/01/19 15:18 03/01/19 15:18 Labs: Abnormal Lab Results - Last 24 Hours (Table) 03/01/19 03/01/19 03/01/19 Range/Units 15:18 15:18 15:34 Potassium 5.5 H (3.5-5.1) mmol/L AST 89 H (14-36) U/L ALT 84 H (9-52) U/L Creatine Kinase 148 H (30-135) U/L Total Protein 9.0 H (6.3-8.2) g/dL Triglycerides 188 H (<150) mg/dL Cholesterol 232 H (<200) mg/dL LDL Cholesterol, Calc 125 H (0-99) mg/dL HDL Cholesterol 69 H (40-60) mg/dL Urine Blood Moderate H (Negative) Urine Mucus Occasional H (None) /hpf Microbiology - Last 24 Hours (Table) 03/01/19 18:00 CSF Gram Stain - Preliminary Cerebral Spinal Fluid Thrombosis Risk Factor Assmnt - Choose All That Apply Any of the Below Risk Factors Present?: No Assessment and Plan Assessment: Bilateral upper extremity weakness Elevated liver enzymes High cholesterol, dyslipidemia History of migraine history of fibromyalgia Plan: This is a pleasant 53 years old female who presents with bilateral upper extremity weakness for 3 weeks. Neurologist evaluated patient recommended MRI which can be done as an inpatient or outpatient. Patient was counseled about high cholesterol Romy she was tried diet first and follow-up with PCP. Liver enzymes mildly elevated we'll check hepatitis panel and follow-up levels. Labs and medication were reviewed.. Continue same treatment. Continue with symptomatic treatment. Resume home medication. Monitor lytes and vitals. DVT and GI prophylaxis. Further recommendations of the clinical course of the patient DVT prophylaxis: Patient is mobile with low risk for DVT GI Prophylaxis: Pepcid PT/OT: Pending
[2019-03-02 13:24] VITALS: BP 150/82; PULSE 70; RESP 16; TEMP 97.9
[2019-03-02 13:30] LABS: African American GFR (CKD) >90 (>60 ml/min/1.73 sqM); Anion Gap 9 mmol/L; Blood Urea Nitrogen 17 mg/dL (7-17); Calcium 9.4 mg/dL (8.4-10.2); Carbon Dioxide 26 mmol/L (22-30); Chloride 105 mmol/L (98-107); Glucose 119 mg/dL (74-99); Potassium 4.2 mmol/L (3.5-5.1); Sodium 140 mmol/L (137-145)
--- NOTE | 2019-03-02 14:29 | P.CNNES ---
History of Present Illness Consult date: 03/02/19 Reason for Consult: Upper extremity weakness Chief complaint: Difficulty lifting up her arms History of Present Illness: REFERRING PHYSICIAN: Dr. Panfilo Lehman. HISTORY OF PRESENT ILLNESS: Thank you for allowing me to evaluate Ms. Chris Neumann. Ms. Chris Neumann is a 53-year-old woman with past medical history of peripheral neuropathy diagnosed about 4 years presenting with acute onset bilateral upper extremity weakness 3 weeks. Patient states that she was mowing her lawn, getting bounced on the lawnmower. About a day or 2 after, patient started having difficulty lifting up her arms, showering, wearing her clothes, wearing her bra due to the weakness. Patient denies any worsening symptoms since then, but there has not been any improvement either. Patient had been at an orthopedic doctor's office yesterday, and it was the orthopedic doctor who recommended the patient to come to the emergency room for further workup. I was called by the ED physician, reported patient was having bilateral upper extremity weakness, not involving her lower extremities. Patient was also having sensory deficits in her lower extremities and upper extremities. Lumbar puncture was, which showed an unremarkable finding. Patient states that she started having numbness in her feet and her hands about 4 years ago on January 28. Patient was evaluated by neurologist, underwent a nerve conduction study and EMG, and patient was told that she had peripheral neuropathy. Patient had taken gabapentin, but she stopped taking because it wasn't helping her. Patient was never told about possible etiology of her peripheral neuropathy. Patient states there has been some shooting pain from her neck up to her head and neck that now involves the inside of her mouth and the back of her right jaw and down to her legs. She also has a numbness along her shoulders. Patient denies any recent sickness, fevers, nausea/vomiting, dizziness, diarrhea, constipation, recent travel. PAST MEDICAL HISTORY: Peripheral neuropathy PAST SURGICAL HISTORY: Sinus surgery, tonsillectomy, injections for SI joint pain, carpal tunnel syndrome HOME MEDICATIONS: Ibuprofen when necessary ALLERGIES: Amoxicillin SOCIAL HISTORY: Denies any smoking, alcohol, drug abuse history. Patient works as a speech therapist. FAMILY HISTORY: Mother with breast cancer (patient's most recent mammogram several months ago) REVIEW OF SYSTEMS: The 14 systems are reviewed and no additional points are identified compared to the review of systems documented history and physical PHYSICAL EXAMINATION: VITAL SIGNS: Temperature 97.9 pulse rate 70 respiratory rate 16 blood pressure 150/82 O2 saturation 97% on room air GEN.: NAD, pleasant and cooperative HEENT: NCAT, sclera without icterus NECK: Supple SKIN AND EXTREMITIES: Warm to touch, no edema NEURO: MENTAL STATUS: Patient alert and oriented to self, place, time. Able to name the current president. Speech fluent, able to name and repeat, following all commands readily. No right and left disorientation, extinction to double simultaneous stimulation, finger agnosia, neglect. CRANIAL NERVES II THROUGH XII: II: Pupils are equal and reactive to light symmetrically. No afferent pupillary defect. Visual hernandez are intact. III, IV, : No ptosis. Extraocular movements full. No nystagmus. V: Facial sensation intact from V1-3. VII. No clear facial asymmetry. VIII: Hearing intact to finger rub bilaterally. IX, X: Symmetric palate elevation. XII: Shoulder shrug intact. XII: Tongue midline without fasciculation or atrophy. MOTOR: Normal bulk/tone. No pronator drift or tremor. Patient able to abduction to about 30 bilaterally but unable to abduction further or maintain arms at his gravity after 30 jayda. Biceps and triceps bilaterally 5/5. Wrist flexion and extension 4-/5. Finger strength 4+/5. Otherwise, strength is 5/5 throughout all 4 extremities. SENSORY: Decreased to light touch and pinprick in her hands and feet. Decreased sensation also in the forearms but less in her hands. Patient with decreased sensation to pinprick on lateral upper arms but intact medially. Proprioception intact in both hands and feet. Vibration decreased in the toes the most also with decreased vibration in her ankles. Vibration intact in bilateral upper shoulders. Romberg is negative. REFLEXES: 2+ throughout. Toes are downgoing. Gregoria's is absent COORDINATION: Finger to nose intact. No dysmetria. GAIT: Narrow-based and stable. Able to toe/heel/tandem walk but cautious. DIAGNOSTIC TESTING: Laboratory: WBC 7.9 hemoglobin 14.4 platelets 239 PT 10.1 INR 0.9 sodium 140 potassium 5.5 chloride 104 bicarb 27 BUN 17 creatinine 0.74 glucose 94 AST 89 ALP 84 CK 148 CRP less than 5.0 albumin 5.0 total cholesterol 232 LDL 125 HDL 69 triglycerides 188 Imaging: CT brain without contrast 03/01/2019 No acute intracranial hemorrhage or midline shift is seen. ASSESSMENT and RECOMMENDATIONS: Ms. Chris Neumann is a 53-year-old woman with past medical history of peripheral neuropathy diagnosed about 4 years presenting with acute onset bilateral upper extremity weakness 3 weeks. Before evaluation, ED physician concern for possible demyelinating etiology. I recommended lumbar puncture, which showed unremarkable CSF studies. On exam, patient with peripheral neuropathy in her bilateral hands and feet along with pain in her, numbness along her shoulders, decreased sensation to pinprick in the lateral upper arms, which could be a separate disease entity. No upper motor neuron exam findings. Ddx include peripheral polyneuropathy involving the C5-6 brachial plexus vs. cervical radiculopathy vs. syringomyelia although very low on the differential as syringomyelia causes mostly sensory symptoms and patient had acute onset of symptoms. I would like for the patient to get an MRI C-spine without contrast, but at this time, MRI machine at [facility] is down. After imaging obtained, it should be reviewed and discussed with patient. Patient should also get an EMG/NCS, which patient states that she already has an appointment for . Pt also needs to get peripheral neuropathy lab work-up (vitamin B12, TSH, PITA, HIV, RPR, Cu/Zinc, SPEP, UPEP) as outpatient. Past Medical History Past Medical History: Fibromyalgia, GERD/Reflux Additional Past Medical History / Comment(s): Migraines. BULDGING DISCS, PINCHED NERVES - PAIN IN LOWER BACK & LEGS; NT ARMS & LEGS, RIGHT SIDE WORSE.- STATES IMPROVEMENT SINCE LAST PAIN CLINIC PROCEDURE. History of Any Multi-Drug Resistant Organisms: None Reported Past Surgical History: Section, Orthopedic Surgery, Tonsillectomy Additional Past Surgical History / Comment(s): Sinus surgery. Bilateral Carpal Tunnel., PAIN CLINIC PROCEDURES Past Anesthesia/Blood Transfusion Reactions: Family History of Problems w/ Anesthesia, Postoperative Nausea & Vomiting (PONV) Additional Past Anesthesia/Blood Transfusion Reaction / Comment(s): PATIENT WOKE UP DURING CARPAL TUNNEL SURGERY. MOTHER HAS PONV. Past Psychological History: No Psychological Hx Reported Smoking Status: Never smoker Past Alcohol Use History: Occasional Past Drug Use History: None Reported - Past Family History Mother Family Medical History: Cancer Medications and Allergies Home Medications Medication Instructions Recorded Confirmed Type Ascorbic Acid [Vitamin C] 500 mg PO DAILY 09/23/17 03/01/19 History Calcium Carbonate [Calcium] 600 mg PO DAILY 09/23/17 03/01/19 History Cholecalciferol [Vitamin D3 (25 5,000 unit PO DAILY 09/23/17 03/01/19 History Mcg = 1000 Iu)] Vitamin B Complex 1 cap PO DAILY 09/23/17 03/01/19 History Magnesium 500 mg PO DAILY 11/17/17 03/01/19 History Lidocaine 4% Cream [Lmx 4] 1 applic TOPICAL DAILY PRN 04/18/18 03/01/19 History Baclofen [Lioresal] 10 mg PO TID PRN 03/01/19 03/01/19 History methylPREDNISolone [Medrol Dose 4 mg PO DIRECTED 03/01/19 03/01/19 History Pack] Allergies Allergy/AdvReac Type Severity Reaction Status Date / Time amoxicillin AdvReac Mild Rapid Verified 03/01/19 15:05 Heart Rate Physical Examination - Vital Signs Vital Signs: Vital Signs Temp Pulse Pulse Pulse Resp BP BP 03/02/19 13:14 97.9 F 70 16 150/82 03/02/19 06:02 97.8 F 69 17 110/69 03/01/19 21:51 03/01/19 20:33 98.0 F 76 16 138/89 03/01/19 18:35 98.8 F 76 18 138/96 03/01/19 17:39 78 18 128/96 03/01/19 17:06 71 16 141/112 03/01/19 15:32 78 18 145/102 03/01/19 14:39 98.1 F 84 18 153/108 Pulse Ox 03/02/19 13:14 97 03/02/19 06:02 95 03/01/19 21:51 98 03/01/19 20:33 97 03/01/19 18:35 98 03/01/19 17:39 98 03/01/19 17:06 98 03/01/19 15:32 96 03/01/19 14:39 99 Intake and Output 03/01/19 03/02/19 03/02/19 22:59 06:59 14:59 Intake Total 600 120 240 Balance 600 120 240 Intake: Oral 600 120 240 Other: # Voids 1 2 3 Results - Laboratory Findings CBC and BMP: 03/01/19 15:18 03/02/19 13:08 Abnormal Lab Findings: Abnormal Labs 03/01/19 03/01/19 03/01/19 15:18 15:18 15:34 Potassium 5.5 H AST 89 H ALT 84 H Creatine Kinase 148 H Total Protein 9.0 H Triglycerides 188 H Cholesterol 232 H LDL Cholesterol, Calc 125 H HDL Cholesterol 69 H Urine Blood Moderate H Urine Mucus Occasional H
== END 2019-03-02 16:45 | disposition home or self-care (01) | DRG 556 ==
LOC: EC 14:35 → 4MS4W 18:04
PROVIDERS: ADMIT Internal Medicine; ATTEND Internal Medicine
PROC: 009U3ZX Drainage of Spinal Canal, Percutaneous Approach, Diagnostic (ICD-10-PCS; principal; 2019-03-01)
DX: M62.81 Muscle weakness (generalized) (principal); G62.9 Polyneuropathy, unspecified; E78.00 Pure hypercholesterolemia, unspecified; E78.5 Hyperlipidemia, unspecified; E87.5 Hyperkalemia; K21.9 Gastro-esophageal reflux disease without esophagitis; M79.7 Fibromyalgia; Z80.3 Family history of malignant neoplasm of breast; M54.12 Radiculopathy, cervical region; Z79.52 Long term (current) use of systemic steroids; Z79.899 Other long term (current) drug therapy; Z88.0 Allergy status to penicillin
CPT/HCPCS: 36415; 62270; 70450; 80048; 80053; 80061; 80074; 81001; 82550; 82945; 84157; 85025; 85610; 85652; 85730; 86140; 87070; 87205; 89050; 93005; 94760; 96374; 99285

== ENCOUNTER 2019-06-08 07:40 | Day surgery (SDC) | payer BC, OTHER ==
[2019-06-07 10:52] VITALS: BMI 23.8
[2019-06-08 07:56] VITALS: TEMP 98.2
--- NOTE | 2019-06-08 08:33 | P.PCN ---
Date of Procedure: 06/08/19 Procedure(s) Performed: Procedure: Right sacroiliac joint steroid injection under fluoroscopy guidance Preoperative diagnosis: right SI joint dysfunction Postoperative diagnosis=same Complication = none Condition= stable Anesthesia= local with 1% lidocaine, no IV sedation was used Indication for the procedure: patient complaining of low back pain , examination was positive for severe tenderness over the sacroiliac joint on the right side and patient diagnosed with sacroiliitis, for this reason she was good candidate for sacroiliac joint steroid injection. Description of the procedure= procedure risk and benefits discussed with the patient, including but not limited, risk of infection and bleeding, and ALLERGIC reaction to the medication and not complete pain relief and patient agreed with the preceding patient taken to the operating room, placed in prone position or standard monitors applied to the patient then after induction of anesthesia back prepped with chlorhexidine Then under strict sterile technique, first I did the right sacroiliac joint the which was identified under fluoroscopy guidance been local infiltration of the skin and subq interstitial with lidocaine 1% then 22-gauge Quincke Needle advanced slowly under fluoroscopy and placed in the right sacroiliac joint needle placement confirmed with AP and oblique and lateral view and after appropriate needle placement confirmed and after negative aspiration, or heme the Ropivicaine 0.5% 2 mL and 40 mg of Kenalog mixed together and injected in the right sacroiliac joint after negative aspiration patient tolerated the procedure well without any complication. The patient tolerated the procedure well that any complications. She has been established in the clinic for quite a period time, she calls and when her pain is worsened and scheduled her procedure, thus at this time no follow-up will be scheduled.
[2019-06-08] MEDS ORDERED: IV FLUID CONTINUATION 1,000 ML IV ONE (08:35)
[2019-06-08 08:40] VITALS: RESP 18
[2019-06-08 08:52] VITALS: BP 118/74; PULSE 67
--- NOTE | 2019-06-08 10:28 | FL ---
FLUOROSCOPY 4 seconds of fluoroscopy time were utilized during right SI joint injection. 2 images document the pr ocedure.
== END 2019-06-08 09:05 | disposition home or self-care (01) ==
LOC: ORPAIN 07:40
PROVIDERS: ATTEND Student in an Organized Health Care Education/Training Program
DX: M53.3 Sacrococcygeal disorders, not elsewhere classified (principal); Z88.0 Allergy status to penicillin; Z78.0 Asymptomatic menopausal state
CPT/HCPCS: 27096; J3301; Q9966

== ENCOUNTER → 2019-08-03 | Outpatient (CLI) | payer BC, OTHER | END | disposition home or self-care (01) | LOC: LABWHC1 10:17 | PROVIDERS: ATTEND Internal Medicine Endocrinology, Diabetes & Metabolism | DX: E04.2 Nontoxic multinodular goiter (principal) | CPT/HCPCS: 36415; 84443 ==

== ENCOUNTER → 2019-08-10 | Outpatient (CLI) | payer BC, OTHER ==
--- NOTE | 2019-08-10 13:34 | US ---
EXAMINATION TYPE: US thyroid st tissue head/neck DATE OF EXAM: 08/10/2019 COMPARISON: Fine-needle aspiration dated 01/29/2019 CLINICAL HISTORY: E04.2 nontoxic multinodular goiter. follow up exam GLAND SIZE: Right Lobe: 5.6 x 1.8 x 2.5 cm Overall Parenchyma: heterogenous Left Lobe: 5.3 x 1.2 x 1.5 cm Overall Parenchyma: heterogeneous Isthmus Thickness: 0.2 cm NODULES RIGHT: # of nodules measured on right: 2 1. 2.0 X 2.0 x 1.6 cm hypoechoic solid nodule at the mid pole with well-defined margins. This nodu le is wider than tall and shows intranodular vascularity. Prior size: 1.8 x 1.2 x 1.1 cm 2. 1.6 X 1.4 x 1.2 cm hypoechoic solid nodule at the lower pole with well-defined margins. This nod ule is wider than tall and shows intranodular vascularity. Prior size: 2.1 x 2.0 x 1.6 cm LEFT: # of nodules measured on left: 0 ISTHMUS: # of nodules measured in the isthmus: 0 Bilateral neck scanned, no evidence of lymphadenopathy. both right nodules were biopsied in 2019 IMPRESSION: Overall similar size of the right thyroid nodules, previously biopsied in 2019.
== END | disposition home or self-care (01) ==
LOC: RADUSWWP 12:27
PROVIDERS: ATTEND Internal Medicine Endocrinology, Diabetes & Metabolism
DX: E04.2 Nontoxic multinodular goiter (principal)
CPT/HCPCS: 76536

== ENCOUNTER → 2019-09-10 | Outpatient (CLI) | payer BC, OTHER ==
--- NOTE | 2019-09-13 09:51 | MM ---
Reason for exam: screening (asymptomatic). Last mammogram was performed 1 year ago. History: Patient is postmenopausal and had first child at age 34. Family history of breast cancer in mother at age 50 and breast cancer in maternal aunt at age 60. Physical Findings: A clinical breast exam by your physician is recommended on an annual basis and results should be correlated with mammographic findings. MG 3D Screening Mammo W/Cad Bilateral CC and MLO view(s) were taken. Prior study comparison: September 08, 2018, bilateral MG 3d screening mammo w/cad. April 15, 2017, bilateral MG 3d screening mammo w/cad. The breast tissue is heterogeneously dense. This may lower the sensitivity of mammography. Calcifications versus artifact upper left MLO view. Focal asymmetry upper inner left breast posterior position. This finding is changed when compared with previous exams. ASSESSMENT: Incomplete: need additional imaging evaluation, BI-RAD 0 RECOMMENDATION: Special view mammogram of the left breast. If lesion persists on supplemental views, image directed ultrasound is recommended. [facility] will attempt to contact patient to return for supplemental views and ultrasound if indicated.
== END | disposition home or self-care (01) ==
LOC: RADMAMWWP 10:09
PROVIDERS: ATTEND Obstetrics & Gynecology
DX: Z12.31 Encounter for screening mammogram for malignant neoplasm of breast (principal)
CPT/HCPCS: 77063; 77067

== ENCOUNTER → 2019-09-17 | Outpatient (CLI) | payer BC, OTHER ==
--- NOTE | 2019-09-20 11:02 | MM ---
Reason for exam: additional evaluation requested from abnormal screening. Last mammogram was performed less than 1 month ago. History: Patient is postmenopausal and had first child at age 34. Family history of breast cancer in mother at age 50 and breast cancer in maternal aunt at age 60. Physical Findings: Nurse did not find any significant physical abnormalities on exam. MG 3D Work Up W/Cad LT Spot compression CC, spot compression MLO, and LM view(s) were taken of the left breast. Prior study comparison: September 10, 2019, bilateral MG 3d screening mammo w/cad. September 08, 2018, bilateral MG 3d screening mammo w/cad. Finding: There are intermediate concern, suspicious coarse heterogeneous, grouped/clustered calcifications in the axillary tail position of the left breast. New finding since September 10, 2019 and September 08, 2018. These results were verbally communicated with the patient and result sheet given to the patient on 09/17/19. ASSESSMENT: Suspicious, BI-RAD 4 RECOMMENDATION: Surgical consultation and stereotactic core biopsy of the left breast. Called Dr. Freed's office with mammographic findings and has scheduled an appointment for the patient for 10/28/19 at 9:[address] Atkins. Biopsy scheduled for 11/05/19 at 8:00. PRELIMINARY REPORT CALLED AND FAXED TO DR. ATKINS ON 09/20/19.
== END | disposition home or self-care (01) ==
LOC: RADMAMWWP 14:27
PROVIDERS: ATTEND Obstetrics & Gynecology
DX: R92.8 Other abnormal and inconclusive findings on diagnostic imaging of breast (principal)
CPT/HCPCS: 77061; 77065

== ENCOUNTER → 2019-12-03 | Outpatient (CLI) | payer BC, OTHER ==
[2019-12-03 11:36] VITALS: BP 117/79; PULSE 94; RESP 18; TEMP 98.3
--- NOTE | 2019-12-03 11:53 | P.GSHP ---
History of Present Illness H&P Date: 12/03/19 Chief Complaint: mammographic abnormality left breast Angela is a 54 year old white female in August 2019 underwent a routine mammogram and was noted to have some microcalcifications of the left breast. Additional views of the left breast. Performed which again revealed coarse heterogeneous group/clustered calcifications in the axillary tail position of the left breast. This was a new finding since August 2018. The patient does not feel any lumps masses or nodules in her breast. She does not complain of any nipple discharge or skin changes. She has not had any trauma or infection in the breast. She does have some intermittent upper quadrant left breast discomfort which is shooting in nature. It is not associated with anything. She drinks 6 cups of coffe/day. She does not smoke and is not exposed to secondhand smoke. She eats dark chocolate intermittently. She does not take any hormones or hormone replacement therapy. Family history: mother: breast cancer at 50 maternal aunt breast cancer in her 50's mother: skin cancer/melanoma and SCC (had chemotherapy) Hormonal History: menarche: 15 , 1 miscarraige, breast fed: yes; first born at 38 menopause: 50 BCP: none hormones: none Surgical history: 1.nasal surgery 2. 3. pain shots in back Medical History: Fibromyalgia hypothyroid chronic fatigue Social History: smoke: none alcohol: red wine drugs: none - Constitutional Constitutional: Denies chills, Denies fever - EENT Eyes: bilateral decreased vision Ears: bilateral: tinnitus Ears, nose, mouth and throat: Reports headache - Breasts Breasts: bilateral: as per HPI - Cardiovascular Cardiovascular: Denies chest pain, Denies shortness of breath - Respiratory Respiratory: Denies cough, Denies 7 - Gastrointestinal Gastrointestinal: Denies abdominal pain, Denies diarrhea, Denies nausea, Denies vomiting - Genitourinary (Female) Genitourinary: Denies dysuria, Denies hematuria - Menstruation Menstruation: Reports postmenopausal - Musculoskeletal Comment: muscle aches and pains/fibromyalgia? - Integumentary Integumentary: Denies pruritus, Denies rash - Neurological Comment: Peripheral neuropathy of unknown etiology Neurological: Denies numbness, Denies weakness - Psychiatric Psychiatric: Denies anxiety, Denies depression - Endocrine Comment: hypothyroid - Hematologic/Lymphatic Comment: none - Allergic/Immunologic Allergic/Immunologic: Reports seasonal allergies Past Medical History Past Medical History: Fibromyalgia, GERD/Reflux Additional Past Medical History / Comment(s): Migraines. Bulging discs, PINCHED NERVES - PAIN IN LOWER BACK & LEGS; NT ARMS & LEGS, RIGHT SIDE WORSE.- STATES IMPROVEMENT SINCE LAST PAIN CLINIC PROCEDURE. History of Any Multi-Drug Resistant Organisms: None Reported Past Surgical History: Section, Orthopedic Surgery, Tonsillectomy Additional Past Surgical History / Comment(s): Sinus surgery. Bilateral Carpal Tunnel., PAIN CLINIC PROCEDURES Past Anesthesia/Blood Transfusion Reactions: Family History of Problems w/ Anesthesia, Postoperative Nausea & Vomiting (PONV) Additional Past Anesthesia/Blood Transfusion Reaction / Comment(s): PATIENT WOKE UP DURING CARPAL TUNNEL SURGERY. MOTHER HAS PONV. Past Psychological History: No Psychological Hx Reported Smoking Status: Never smoker Past Alcohol Use History: Occasional Past Drug Use History: None Reported - Past Family History Mother Family Medical History: Cancer Medications and Allergies Home Medications Medication Instructions Recorded Confirmed Type Ascorbic Acid [Vitamin C] 500 mg PO DAILY 09/23/17 12/03/19 History Calcium Carbonate [Calcium] 600 mg PO DAILY 09/23/17 12/03/19 History Cholecalciferol [Vitamin D3 (25 5,000 unit PO DAILY 09/23/17 12/03/19 History Mcg = 1000 Iu)] Vitamin B Complex 1 cap PO DAILY 09/23/17 12/03/19 History Magnesium 500 mg PO DAILY 11/17/17 12/03/19 History Lidocaine 4% Cream [Lmx 4] 1 applic TOPICAL DAILY PRN 04/18/18 12/03/19 History Levothyroxine Sodium [Synthroid] 25 mcg PO DAILY 06/07/19 12/03/19 History Allergies Allergy/AdvReac Type Severity Reaction Status Date / Time amoxicillin AdvReac Mild Rapid Verified 12/03/19 10:56 Heart Rate Surgical - Exam Vital Signs Temp Pulse Resp BP Pulse Ox 98.3 F 94 18 117/79 98 12/03/19 10:51 12/03/19 10:51 12/03/19 10:51 12/03/19 10:51 12/03/19 10:51 BMI 27.3 - General well developed, well nourished, no distress - Eyes normal ocular movement, no icteric - ENT no hearing loss, no congestion - Neck no masses, trachea midline - Respiratory normal expansion, normal respiratory effort, clear to auscultation - Cardiovascular Rhythm: regular Heart Sounds: normal: S1, S2 - Abdomen Abdomen: soft, non tender, no guarding, no rigid, no rebound - Integumentary normal turgor - Neurologic no disoriented, no combative - Musculoskeletal normal gait, normal posture - Psychiatric oriented to time, oriented to person, oriented to place, speech is normal, memory intact breast exam: BRA 36B inspection: grade 2 ptosis bilateral no nipple inversion palpation: Right breast: Multi-positional exam fibrocystic changes, no dominant masses or nodules of concern Right axilla: No adenopathy of concern Left breast: Multi-positional exam fibrocystic changes no dominant masses or nodules of concern Left axilla: No adenopathy of concern Results Mammogram results reviewed, this was reviewed specifically with Dr. Osman and he feels that the lesion is such that he stereo procedure can be attempted. Assessment and Plan Assessment: Impression: 1. mammographic abnormality left breast 2. fibrocystic breast changes 3. hypothyroid 4. ? fibromyalgia Plan: 1. Stereotactic core biopsy of the left breast 2. Patient understands will not use any aspirin or nonsteroidals for at least 1 week prior to the procedure Risk and benefits of present procedure discussed with the patient. These include but are not limited to bleeding, infection, possible reaction to the anesthetic. There is a possibility of the lesion will not be able to be localized stereotactically which would then most likely result in a needle localization open biopsy in the operating room. Alternatives of waiting versus open biopsy were discussed and at this time we are going to proceed with an attempted stereo biopsy. The patient understands and wishes to proceed. We've also discussed the colon with 19 risk and she understands and wishes to proceed. Cc: Dr. Freed encounter 40 minutes, > 50% of time spent in planning and counselling Time with Patient: Greater than 30
== END | disposition home or self-care (01) ==
LOC: WWCWWP 10:35
PROVIDERS: ATTEND Surgery
DX: Z53.9 Procedure and treatment not carried out, unspecified reason (principal)

== ENCOUNTER → 2019-12-15 | Outpatient (CLI) | payer BC, OTHER | END | disposition home or self-care (01) | LOC: LABWHC1 08:20 | PROVIDERS: ATTEND Surgery | DX: Z11.59 Encounter for screening for other viral diseases (principal) | CPT/HCPCS: 87635 ==

== ENCOUNTER → 2019-12-17 | Day surgery (SDC) | payer BC, OTHER ==
[2019-12-17 07:22] VITALS: BP 134/83; PULSE 65; RESP 16; TEMP 98
--- NOTE | 2019-12-17 12:10 | MM ---
EXAMINATION TYPE: MG discontinued stereo core LT DATE OF EXAM: 12/17/2019 COMPARISON: Diagnostic left breast mammogram dated 09/17/2019 CLINICAL HISTORY: Highly suspicious left breast calcifications of the upper outer quadrant at posteri or depth TECHNIQUE: Stereotactic guided core biopsy of left breast. FINDINGS/IMPRESSION: The procedure of stereotactic guided core biopsy was explained to the patient. Benefits, alternatives, and risks were discussed. An informed consent was then obtained. However, on attempt to image the calcifications on the stereotactic table malfunction was experienced with the e quipment. Artifact is seen on both business economist and pair images with inconsistent X, Y, and Z values after t argeting. This was discussed with the patient and the [employer] was contacted imm ediately for repair. The patient will be scheduled on 12/23/2019 at [facility] for stereo tactic guided biopsy. Both myself, Dr. Panchal, and Dr. Jevon Paniagua discussed this with the patient.
== END ==
LOC: RADMAMWWP 07:03
PROVIDERS: ATTEND Surgery
DX: R92.1 Mammographic calcification found on diagnostic imaging of breast (principal); Z53.09 Procedure and treatment not carried out because of other contraindication

== ENCOUNTER → 2019-12-31 | Outpatient (CLI) | payer BC, OTHER ==
[2019-12-31 08:58] VITALS: BP 135/86; PULSE 61; RESP 18; TEMP 98.2
--- NOTE | 2019-12-31 09:45 | P.PN ---
Subjective Progress Note Date: 12/31/19 Principal diagnosis: Left breast DCIS The patient is a 54-year-old white female status post left breast stereotactic core biopsy on [id number]. Pathology revealed high-grade DCIS. The extent of the tumor was approximately 3.5 cm. There is no additional tumor noted within the breast. The patient tolerated the procedure without difficulty. Objective - Vital Signs Vital signs: Vital Signs Temp 98.2 F 12/31/19 08:53 Pulse 61 12/31/19 08:53 Resp 18 12/31/19 08:53 BP 135/86 12/31/19 08:53 Pulse Ox 98 12/31/19 08:53 Intake & Output 12/30/19 12/31/19 12/31/19 18:59 06:59 18:59 Weight 77.564 kg - Exam BMI 26 - Constitutional General appearance: Present: average body habitus - EENT Eyes: Present: EOMI ENT: Present: hearing grossly normal - Respiratory Respiratory: bilateral: CTA - Cardiovascular Rhythm: regular Heart sounds: normal: S1, S2 - Integumentary Integumentary Comment(s): echymosis lateral aspect left breast Integumentary: Present: normal turgor - Musculoskeletal Musculoskeletal: Present: gait normal - Psychiatric Psychiatric: Present: A&O x's 3, appropriate affect, intact judgment & insight Assessment and Plan Assessment: Impression: 1. DCIS left breast upper outer quadrant 2. Extent of disease approximately 3.5 cm 3. Family history of breast cancer Plan: 1. Bracketed needle localization lumpectomy left breast, sentinel node injection, sentinel node biopsy possible axillary node dissection, possible onco-plastic tissue transfer, possible mastopexy incision 2. Bilateral breast MRI 3. Medical clearance from Dr. Mccoy/[facility] 4. I've discussed genetic testing and the patient does not want to have this done at the present time Surgical options have been discussed with the patient including mastectomy plus or minus reconstruction, left breast lumpectomy and sentinel node biopsy. Risks include but are not limited to bleeding infection reaction to the anesthetic. The patient and her understand and they wish to proceed. They also understand that she will require radiation therapy to the breast and she is not interested in a mastectomy. CC: / Darius encounter 40 minutes, > 50% of time in planning and counselling
--- NOTE | 2020-01-28 10:00 | P.PN ---
Subjective Progress Note Date: 01/28/20 Principal diagnosis: Left breast DCIS Angela is a 54 year old white female who in August 2019 underwent a routine mammogram and was noted to have some microcalcifications of the left breast. Additional views of the left breast. Performed which again revealed coarse heterogeneous group/clustered calcifications in the axillary tail position of the left breast. This was a new finding since August 2018. The patient did not feel any lumps masses or nodules in her breast. She did not complain of any nipple discharge or skin changes. She had not had any trauma or infection in the breast. She did have some intermittent upper quadrant left breast discomfort which was shooting in nature. It was not associated with anything. She drinks 6 cups of coffee/day. She does not smoke and is not exposed to secondhand smoke. She eats dark chocolate intermittently. She does not take any hormones or hormone replacement therapy. [place] [id number]. Pathology revealed high-grade DCIS. The extent of the tumor was approximately 3.5 cm. There was no additional tumor noted within the breast. She tolerated the procedure without difficulty. Family history: mother: breast cancer at 50 maternal aunt breast cancer in her 50's mother: skin cancer/melanoma and SCC (had chemotherapy) Hormonal History: menarche: 15 , 1 miscarraige, breast fed: yes; first born at 38 menopause: 50 BCP: none hormones: none Surgical history: 1.nasal surgery 2. 3. pain shots in back Medical History: Fibromyalgia hypothyroid chronic fatigue Social History: smoke: none alcohol: red wine drugs: none - Constitutional Constitutional: Denies chills, Denies fever - EENT Eyes: bilateral decreased vision Ears: bilateral: tinnitus Ears, nose, mouth and throat: Reports headache - Breasts Breasts: bilateral: as per HPI - Cardiovascular Cardiovascular: Denies chest pain, Denies shortness of breath - Respiratory Respiratory: Denies cough - Gastrointestinal Gastrointestinal: Denies abdominal pain, Denies diarrhea, Denies nausea, Denies vomiting - Genitourinary (Female) Genitourinary: Denies dysuria, Denies hematuria - Menstruation Menstruation: Reports postmenopausal - Musculoskeletal Comment: muscle aches and pains/fibromyalgia? - Integumentary Integumentary: Denies pruritus, Denies rash - Neurological Comment: Peripheral neuropathy of unknown etiology Neurological: Denies numbness, Denies weakness - Psychiatric Psychiatric: Denies anxiety, Denies depression - Endocrine Comment: hypothyroid - Hematologic/Lymphatic Comment: none - Allergic/Immunologic Allergic/Immunologic: Reports seasonal allergies Objective - Vital Signs Vital signs: Vital Signs Temp 98.2 F 12/31/19 08:53 Pulse 61 12/31/19 08:53 Resp 18 12/31/19 08:53 BP 135/86 12/31/19 08:53 Pulse Ox 98 12/31/19 08:53 - Exam BMI 26 - Constitutional General appearance: Present: average body habitus - EENT Eyes: Present: EOMI ENT: Present: hearing grossly normal - Neck Neck: Present: normal ROM - Respiratory Respiratory: bilateral: CTA - Cardiovascular Rhythm: regular Heart sounds: normal: S1, S2 - Gastrointestinal General gastrointestinal: Present: normal bowel sounds, soft - Integumentary Integumentary Comment(s): echymosis lateral aspect of left breast Integumentary: Present: normal turgor - Musculoskeletal Musculoskeletal: Present: gait normal - Psychiatric Psychiatric: Present: A&O x's 3, appropriate affect, intact judgment & insight - Additional findings Additional findings: Breast examination: Block: 30 6B Inspection grade 2 ptosis bilateral Palpation: Right breast: Multi-positional exam fibrocystic changes, no dominant masses or nodules of concern Right axilla: No adenopathy of concern Left breast: Both positional exam fibrocystic changes no dominant masses or nodules of concern Left axilla: No adequate adenopathy of concern Assessment and Plan Assessment: Impression: 1. DCIS left breast upper outer quadrant 2. Extent of disease approximately 3.5 cm 3. Family history of breast cancer Plan: 1. Bracketed needle localization partial mastectomy left breast, sentinel node injection, sentinel node biopsy possible axillary node dissection, possible onco-plastic tissue transfer, possible mastopexy incision 2. Bilateral breast MRI 3. Medical clearance from Dr. Mccoy/[facility] 4. I've discussed genetic testing and the patient does not want to have this done at the present time 5. Patient's case is being presented at tumor board Surgical options have been discussed with the patient including mastectomy plus or minus reconstruction, left breast lumpectomy and sentinel node biopsy. Risks include but are not limited to bleeding infection reaction to the anesthetic. The patient and her understand and they wish to proceed. They also understand that she will require radiation therapy to the breast and she is not interested in a mastectomy. CC: / Darius encounter 40 minutes, > 50% of time in planning and counselling
== END | disposition home or self-care (01) ==
LOC: WWCWWP 08:47
PROVIDERS: ATTEND Surgery
DX: Z53.9 Procedure and treatment not carried out, unspecified reason (principal)

== ENCOUNTER → 2020-01-28 | Outpatient (CLI) | payer BC, OTHER ==
[2020-01-28 09:12] LABS: African American GFR (CKD) >90 (>60 ml/min/1.73 sqM); Anion Gap 6 mmol/L; Blood Urea Nitrogen 18 mg/dL (7-17); Calcium 9.6 mg/dL (8.4-10.2); Carbon Dioxide 29 mmol/L (22-30); Chloride 104 mmol/L (98-107); Glucose 91 mg/dL (74-99); Non-African American GFR(CKD) >90 (>60 ml/min/1.73 sqM); Potassium 4.3 mmol/L (3.5-5.1); Sodium 139 mmol/L (137-145)
== END | disposition home or self-care (01) ==
LOC: LABWHC1 08:07
PROVIDERS: ATTEND Family Medicine
DX: R94.4 Abnormal results of kidney function studies (principal)
CPT/HCPCS: 36415; 80048

== ENCOUNTER 2020-02-01 07:24 | Day surgery (SDC) | payer BC, OTHER ==
[2020-01-26 14:10] VITALS: BMI 26.3
[~2020-02-01 07:24] MED LIST changes: +DEXAMETHASONE SOD PHOSPHATE 10 MG/ML 1 ML VIAL IV ONE; +HEPARIN SODIUM,PORCINE 5,000 UNIT/ML 1 ML VIAL SQ ONE; +LIDOCAINE 1% (10MG/ML) FOR IV START INTRADERMA PRN; +MIDAZOLAM 2 MG/2 ML VIAL IV PRN; +ONDANSETRON 4 MG/2 ML VIAL IVP ONE; +Pre Op ABX Message 1 EACH MISC MISCELLANE ONE; +fentaNYL (PF) 50 MCG/ML 2 ML AMP IV PRN
[2020-02-01] MEDS ORDERED: ALPRAZolam 0.5 MG TAB ONE (08:06)
[2020-02-01] MEDS ORDERED: ALPRAZolam 0.5 MG TAB PO ONE (08:07)
[2020-02-01] MEDS ORDERED: SCOPOLAMINE 1.5MG/72HR PATCH TRANSDERM ONE (08:08)
[2020-02-01] MEDS ORDERED: LIDOCAINE 1% INJ 10MG/ML (20 ML MDV) SQ ONE ×2 (09:02→12:15)
[2020-02-01 09:46] VITALS: TEMP 97.8
[2020-02-01] MEDS ORDERED: HEPARIN SODIUM,PORCINE 5,000 UNIT/ML 1 ML VIAL ONE (09:53)
[2020-02-01] MEDS ORDERED: ONDANSETRON 4 MG/2 ML VIAL ONE (09:54)
[2020-02-01] MEDS ORDERED: PROPOFOL 10 MG/ML 20 ML VIAL IV ONE (10:09)
[2020-02-01] MEDS ORDERED: SUCCINYLCHOLINE CHLORIDE 100 MG/5 ML SYR IV ONE (10:09)
[2020-02-01] MEDS ORDERED: LIDOCAINE 1% INJ 10MG/ML (20 ML MDV) ONE (10:09)
[2020-02-01] MEDS ORDERED: MIDAZOLAM 2 MG/2 ML VIAL ONE (10:09)
[2020-02-01] MEDS ORDERED: fentaNYL (PF) 50 MCG/ML 2 ML AMP ONE (10:09)
[2020-02-01] MEDS ORDERED: LACTATED RINGERS 1,000 ML IV ONE (11:33)
--- NOTE | 2020-02-01 12:25 | P.OP ---
Date of Procedure: 02/01/20 Preoperative Diagnosis: Left breast ductal carcinoma in situ, left axillary skin tag Postoperative Diagnosis: Same Procedure(s) Performed: Left breast sentinel node biopsy, bracketed area of ductal carcinoma in situ and partial mastectomy, adjacent tissue transfer oncoplastic tissue rearrangement, removal of skin tag left axilla Anesthesia: LORIE Surgeon: Lorenza Atkins Estimated Blood Loss (ml): 10 IV fluids (ml): 700 Pathology: other ([place] lymph node, breast tissue) Condition: stable Disposition: same day Indications for Procedure: Biopsy-proven left breast ductal carcinoma in situ Operative Findings: Dense breast tissue Description of Procedure: Angela is a 54-year-old white female who underwent a core biopsy of the left breast. Pathology revealed ductal carcinoma in situ. The area of concern is in the upper outer quadrant and felt to be somewhat diffuse. Therefore the area of microcalcifications was bracketed for resection. Additionally the ductal carcinoma in situ was high-grade and therefore sentinel node biopsy was recommended. The patient was seen in the preoperative area and the location for skin incision was marked. She was not felt to be a good candidate for periareolar incision secondary to the extent of disease in the location and the upper quadrant. Following this she was taken to the operating room. The patient was taken to the operating room and following induction of anesthesia the left breast and axilla were prepped and draped in a sterile fashion. Using the neoprobe the area of greatest radioactivity in the axilla was identified. A small incision was made and the dissection was carried into the deep axillary tissues. The lymph node was removed. The 10 second count was 18,882. Following this the background count in the axilla was noted to be approximately 50. The wound was well irrigated. We assured that hemostasis was attained the deep tissues were closed using 3-0 Vicryl suture. The skin was closed using 4-0 Monocryl. Following this the area of the breast was approached. The area of concern had been bracketed with 2 needle localization wires. An incision was made and dissection was performed in the anterior mammary plane to the area of the insertion of both wires. The wires were brought into the area of concern. Following this dissection was performed inferiorly and the anterior mammary fascial plane. The dissection was performed distal to the end of the wires. Dissection was then performed posteriorly to the pectoralis minor and major muscle. The specimen was divided bluntly and dissected laterally which dissection was to the area of the axilla. Following this the specimen was painted for orientation. Radiograph of the specimen revealed the area of concern was removed. Following this the wound was well irrigated. The superior tissues were mobilized approximately 6 x 3 cm mobilizing 18 square centimeters of tissue. The inferior tissues were mobilized approximately 9 x 3 cm approximately 27 cm of tissue mobilized. Approximately 45 cm total of tissue was mobilized. The wound was evaluated for hemostasis. Titanium clips were placed to jayda the cavity. The tissues were brought together using 3-0 Vicryl suture in a [id number] fashion. Following this the subcutaneous tissues were closed using 3-0 Vicryl suture. This was followed by closure of the skin with 4-0 Monocryl. Suture was then placed. The patient tolerated the procedure in stable condition. All instrument and sponge counts were correct at the end of the case. A skin tag was removed from the left axillary region. It was removed using sharp dissection and the base was cauterized using electrocautery device. This was sent to pathology.
--- NOTE | 2020-02-01 12:27 | P.DS ---
Providers Attending physician: Lorenza Atkins Primary care physician: Sonia Pringle Plan - Discharge Summary Discharge Rx Participant: Yes New Discharge Prescriptions: No Action Cholecalciferol [Vitamin D3 (25 Mcg = 1000 Iu)] 5,000 unit PO DAILY Vitamin B Complex 1 cap PO DAILY Calcium Carbonate [Calcium] 600 mg PO DAILY Ascorbic Acid [Vitamin C] 500 mg PO DAILY Magnesium 500 mg PO DAILY Lidocaine 4% Cream [Lmx 4] 1 applic TOPICAL DAILY PRN PRN Reason: Pain Levothyroxine Sodium [Synthroid] 50 mcg PO DAILY Acetaminophen [Tylenol] 500 mg PO DAILY Discharge Medication List Ascorbic Acid [Vitamin C] 500 mg PO DAILY 09/23/17 [History] Calcium Carbonate [Calcium] 600 mg PO DAILY 09/23/17 [History] Cholecalciferol [Vitamin D3 (25 Mcg = 1000 Iu)] 5,000 unit PO DAILY 09/23/17 [History] Vitamin B Complex 1 cap PO DAILY 09/23/17 [History] Magnesium 500 mg PO DAILY 11/17/17 [History] Lidocaine 4% Cream [Lmx 4] 1 applic TOPICAL DAILY PRN 04/18/18 [History] Acetaminophen [Tylenol] 500 mg PO DAILY 12/14/19 [History] Levothyroxine Sodium [Synthroid] 50 mcg PO DAILY 12/14/19 [History] Follow up Appointment(s)/Referral(s): Lorenza Atkins MD [STAFF PHYSICIAN] - 1 Week Activity/Diet/Wound Care/Special Instructions: do not drive for 24 hours after discharge or if taking narcotic pain medicine may shower after 48 hours wear bra at all times Discharge Disposition: HOME SELF-CARE
[2020-02-01 12:34] VITALS: RESP 16
[2020-02-01] MEDS: HYDROmorphone 0.5 MG/0.5 ML SYRINGE IVP PRN ×4 (12:44→13:16)
--- NOTE | 2020-02-01 13:24 | NM ---
EXAMINATION TYPE: NM sentinel node injection DATE OF EXAM: 02/01/2020 COMPARISON: NONE INDICATION: Abnormal mammogram. Informed consent was obtained. A timeout was performed. The area around the left nipple was cleansed with alcohol. The skin was anesthetized with 1% Lidocai ne with sodium bicarbonate. In four equal doses, a total of 523 millicuries Technetium 99m Tilmanoce pt was injected. The patient tolerated the procedure very well. IMPRESSIONS: 1.. Successful injection for sentinel node evaluation.
[2020-02-01] MEDS ORDERED: diphenhydrAMINE 50 MG/ML 1 ML VIAL IVP ONE (13:30)
[2020-02-01 14:52] VITALS: BP 126/77; PULSE 68
--- NOTE | 2020-02-01 15:01 | P.NAPBC ---
NAPBC Queries - NAPBC Queries Was patient's case review presented at [facility] tumor board? If no, comment.: Yes Was patient's pathology reviewed at [facility]? If no, comment.: Yes Was breast conservation surgery offered? If no, comment.: Yes Was sentinel node biopsy offered? If no, comment.: Yes Was diagnosis confirmed by percutaneous core biopsy? If no, comment.: Yes Is patient mastectomy patient?: No Clinical Stage: DCIS Stage 0
--- NOTE | 2020-02-01 16:35 | MM ---
EXAMINATION TYPE: MG pre op needle loc LT DATE OF EXAM: 02/01/2020 COMPARISON: NONE CLINICAL HISTORY: Left breast ductal carcinoma TECHNIQUE: Needle localization with wire placement and surgical excision of area of concern in the left breast. FINDINGS: The procedure of needle localization with wire placement for surgical excision was explained to the patient. Risk, benefits, and alternatives were discussed. An informed consent was then obtained. A timeout was performed. The overlying skin was prepped and draped in usual sterile fashion. Lidocaine 1% was used as anesthetic into the skin and subcutaneous tissue up to the level of area of concern. 2 9 cm needle were used to bracket the region of calcification. These were placed via a craniocaudal approach under mammographic guidance. Subsequent 90 degrees mammogram show the needles to be in satisfactory position relative to the targeted area. The wire was placed through each needle and the needle was withdrawn. The wires were fixed to patient's skin. Images were marked for surgeon. Images were discussed with the surgeon in person. The patient tolerated the procedure well without any immediate complication. Specimen: The wires and the targeted calcifications are identified within the specimen mammogram. IMPRESSION: 1. Successful wire localization and excision. Recommendations: 1. Recommendations are pending pathology results. Pathology Results: Malignant A. LEFT BREAST SKIN TAG: Acrochordon. B. LEFT BREAST SENTINNEL LYMPH NODE, BIOPSY: Lymph node negative for metastasis. CK7 and JORI immunoperoxidase stains are confirmatory (controls appropriate). C. LEFT BREAST LUMPECTOMY: Residual high grade ductal carcinoma in situ (DCIS) with comedo necrosis and calcifications, involving the blue/green (anterior/inferior) and orange (lateral) margins. See Surgical Pathology Cancer Case Summary and Comment. Recommendation Follow up mammogram of the left breast in 6 months. Surgical consult of the left breast. JHONY
== END 2020-02-01 15:18 | disposition home or self-care (01) ==
LOC: OR 07:24
PROVIDERS: ATTEND Surgery
DX: D05.12 Intraductal carcinoma in situ of left breast (principal); L91.8 Other hypertrophic disorders of the skin; M79.7 Fibromyalgia; E03.9 Hypothyroidism, unspecified; M50.30 Other cervical disc degeneration, unspecified cervical region; Z79.890 Hormone replacement therapy; Z88.0 Allergy status to penicillin; Z79.899 Other long term (current) drug therapy; Z80.0 Family history of malignant neoplasm of digestive organs; Z80.8 Family history of malignant neoplasm of other organs or systems
CPT/HCPCS: 38525; 19301; 88304; 88342; 88307; 88341; 76098; 38792; A9520; J2250; J1200; J1644; J1100; J2405; J2001; J3010; J0330; J2704; J1170

== ENCOUNTER → 2020-03-14 | Outpatient (CLI) | payer BC, OTHER ==
--- NOTE | 2020-03-15 07:28 | BMR ---
EXAMINATION TYPE: MR breast BILAT wo/w con DATE OF EXAM: 03/14/2020 COMPARISON: 3-D bilateral breast mammogram September 10, 2019 BI-RADS 0. 3-D diagnostic left breast wo rkup September 17, 2019 BI-RADS 4. HISTORY: Abnormal clinical findings, Left breast. Prior abnormal mammogram with positive outside ster eotactic guided core biopsy December 23, 2019 and subsequent needle localization with surgical excision Ju 2019. Pathology high-grade DCIS on excision. CONTRAST: Multiplanar, multisequence images of the breasts were acquired utilizing 7.5 mL intravenous Gadavist gadolinium contrast. TECHNIQUE: A series of fat and water weighted images in the long and short axis views of both breasts are obtained in conjunction with dynamic contrast MRI with subtraction technique. Three-dimensional and additional postprocessing imaging is created on independent workstation and reviewed during offi cial interpretation of this study. FINDINGS: Heterogeneously dense fibroglandular tissue is redemonstrated bilaterally. T2 and STIR weig hted images show no significant cystic change bilaterally. T1 axial images show no suspicious fat-con taining masses. Dynamic postcontrast images show mild symmetric background enhancement. Delayed dynam ic imaging shows no suspicious internal mammary adenopathy bilaterally. With regards to the right breast. No suspicious skin thickening is seen. Dynamic postcontrast imaging shows no pathologic enhancement or enhancing masses. Chest wall is intact. With regards to the left breast in the upper outer quadrant posterior depth abutting the lateral aspe ct of the pectoralis muscle there is thin walled fluid collection measuring 1.8 cm AP by 4.5 cm trans versely axial image 30 series 301 by nearly 6.5 cm craniocaudal dimension coronal image 16 series 401 . Findings are consistent with postsurgical seroma as there is artifact from biopsy clips along the p eripheral margin. There are some adjacent subcentimeter benign left axillary lymph nodes. Dynamic juju ging shows slightly more suspicious nonmass enhancement along the anterior superior margin of the res ection cavity or seroma measuring 8 mm AP diameter by roughly 2.0 cm transversely. This has areas of gradual and washout dynamic emetics. This does not distinctly correlate with the pathology findings o f positive margins lateral and the anterior inferior aspect. Remainder of left breast shows no suspic ious enhancement or enhancing masses in remainder of left breast. IMPRESSION: Nonspecific masslike enhancement along the anterior superior margin of the resection cavi ty as detailed above could reflect residual neoplasm. Normal evidence for invasive malignancy in the right breast or multicentric disease in the left breast. BI-RADS 2 benign findings right breast. BI-RADS 6 biopsy-proven cancer left breast. Recommendation: Surgical excision of the resection cavity due to positive margins on pathology includ ing area of suspicion on MRI along the anterior superior aspect of the cavity. Case discussed with surgeon.
== END | disposition home or self-care (01) ==
LOC: RADMRIMAIN 09:03
PROVIDERS: ATTEND Surgery
DX: C50.911 Malignant neoplasm of unspecified site of right female breast (principal)
CPT/HCPCS: 77049; C8937; A9585

== ENCOUNTER → 2020-03-17 | Outpatient (CLI) | payer BC, OTHER ==
[2020-03-17 10:47] VITALS: BP 137/87; PULSE 65; RESP 18; TEMP 98.1
--- NOTE | 2020-03-17 11:45 | P.PN ---
Subjective Progress Note Date: 03/17/20 Principal diagnosis: DCIS left breast with positive margins Angela is a 54 year old white female in August 2019 underwent a routine mammogram and was noted to have some microcalcifications of the left breast. Additional views of the left breast. Performed which again revealed coarse heterogeneous group/clustered calcifications in the axillary tail position of the left breast. This was a new finding since August 2018. The patient did not feel any lumps masses or nodules in her breast. She does not complain of any nipple discharge or skin changes. She had not had any trauma or infection in the breast. She did have some intermittent upper quadrant left breast discomfort which is shooting in nature. It is not associated with anything. Stereotactic core biopsy and [id number]. This revealed ductal carcinoma in situ. She subsequently underwent a left breast lumpectomy and sentinel node biopsy on . Pathology revealed sentinel node negative for metastasis. She had residual high-grade ductal carcinoma in situ involving the anterior inferior and lateral margins. The patient subsequently underwent an MRI which revealed nonspecific masslike enhancement along the anterior superior margin of the resection cavity with no evidence for invasive malignancy in the right breast or multicentric disease in the left breast. Generator testing was performed and as per the patient was negative. She drinks 6 cups of coffe/day. She does not smoke and is not exposed to secondhand smoke. She eats dark chocolate intermittently. She does not take any hormones or hormone replacement therapy. Family history: mother: breast cancer at 50 maternal aunt breast cancer in her 50's mother: skin cancer/melanoma and SCC (had chemotherapy) Hormonal History: menarche: 15 , 1 miscarraige, breast fed: yes; first born at 38 menopause: 50 BCP: none hormones: none Surgical history: 1.nasal surgery 2. 3. pain shots in back 2. Left breast lumpectomy and sentinel node biopsy Medical History: Fibromyalgia hypothyroid chronic fatigue Social History: smoke: none alcohol: red wine drugs: none - Constitutional Constitutional: Denies chills, Denies fever - EENT Eyes: bilateral decreased vision Ears: bilateral: tinnitus Ears, nose, mouth and throat: Reports headache - Breasts Breasts: bilateral: as per HPI - Cardiovascular Cardiovascular: Denies chest pain, Denies shortness of breath - Respiratory Respiratory: Denies cough, - Gastrointestinal Gastrointestinal: Denies abdominal pain, Denies diarrhea, Denies nausea, Denies vomiting - Genitourinary (Female) Genitourinary: Denies dysuria, Denies hematuria - Menstruation Menstruation: Reports postmenopausal - Musculoskeletal Comment: muscle aches and pains/fibromyalgia? - Integumentary Integumentary: Denies pruritus, Denies rash - Neurological Comment: Peripheral neuropathy of unknown etiology Neurological: Denies numbness, Denies weakness - Psychiatric Psychiatric: Denies anxiety, Denies depression - Endocrine Comment: hypothyroid - Hematologic/Lymphatic Comment: none - Allergic/Immunologic Allergic/Immunologic: Reports seasonal allergies Objective - Vital Signs Vital signs: Vital Signs Temp 98.1 F 03/17/20 10:45 Pulse 65 03/17/20 10:45 Resp 18 03/17/20 10:45 BP 137/87 03/17/20 10:45 Pulse Ox 98 03/17/20 10:45 Intake & Output 03/16/20 03/17/20 03/17/20 18:59 06:59 18:59 Weight 64.41 kg - Exam BMI 21.6 - Constitutional General appearance: Present: average body habitus - EENT Eyes: Present: EOMI ENT: Present: hearing grossly normal - Neck Neck: Present: normal ROM - Respiratory Respiratory: bilateral: CTA - Cardiovascular Rhythm: regular Heart sounds: normal: S1, S2 - Gastrointestinal General gastrointestinal: Present: soft - Integumentary Integumentary Comment(s): incision left breast clean and dry Integumentary: Present: normal turgor - Musculoskeletal Musculoskeletal: Present: gait normal - Psychiatric Psychiatric: Present: A&O x's 3, appropriate affect, intact judgment & insight - Additional findings Additional findings: Breast: BRA: 36C Inspection: Right breast ptosis grade 2, left breast ptosis grade 2, well-healed scar from prior surgery left breast slightly smaller than right breast from prior surgery Palpation: Right breast: Multi-positional exam no dominant masses or nodules of concern Right axilla: No adenopathy of concern Left breast: There was scar from prior surgery, no dominant masses or nodules of concern Left axilla: No adenopathy of concern Assessment and Plan Assessment: Impression: Fibromyalgia hypothyroid chronic fatigue Left breast residual DCIS following lumpectomy Plan: 1. Left breast reexcision lumpectomy site 2. Most likely placement of BioSorb 3. Medical management of medical conditions A long discussion regarding the treatment options secondary to the positive margins on the DCIS lumpectomy specimen. Options include reexcision of the cavity versus mastectomy plus or minus reconstruction. The patient wishes to undergo reexcision of the lumpectomy site. She understands that there will be cosmetic deformity related to this and yet wishes to proceed. She also understands that she will need radiation therapy following this. She has been seen by medical and radiation oncology. The case has been presented at tumor board. Risks and benefits including bleeding and infection reaction to the anesthetic have been discussed and understood. The patient has seen plastic surgery and at this time wishes to proceed with reexcision of the lumpectomy site. She understands if the margins are positive or couldn't require additional surgery and potential mastectomy. Cc: Dr. Mccoy encounter 45 minutes, > 50% of time in planning and counselling
== END | disposition home or self-care (01) ==
LOC: WWCWWP 10:17
PROVIDERS: ATTEND Surgery
DX: Z53.9 Procedure and treatment not carried out, unspecified reason (principal)

== ENCOUNTER 2020-03-28 07:19 | Day surgery (SDC) | payer BC, OTHER ==
[2020-03-23 14:18] VITALS: BMI 26.6
[~2020-03-28 07:19] MED LIST changes: -DEXAMETHASONE SOD PHOSPHATE 10 MG/ML 1 ML VIAL IV ONE; -LACTATED RINGERS 1,000 ML IV SCH; -LIDOCAINE 1% (10MG/ML) FOR IV START INTRADERMA PRN; -MIDAZOLAM 2 MG/2 ML VIAL IV PRN; -ONDANSETRON 4 MG/2 ML VIAL IVP ONE; -fentaNYL (PF) 50 MCG/ML 2 ML AMP IV PRN
[2020-03-28] MEDS ORDERED: LACTATED RINGERS 1,000 ML IV SCH (07:27)
[2020-03-28] MEDS ORDERED: LIDOCAINE 1% (10MG/ML) FOR IV START INTRADERMA PRN (07:27)
[2020-03-28] MEDS ORDERED: DEXAMETHASONE SOD PHOSPHATE 10 MG/ML 1 ML VIAL IV ONE (07:27)
[2020-03-28] MEDS ORDERED: ONDANSETRON 4 MG/2 ML VIAL IVP ONE (07:44)
[2020-03-28] MEDS ORDERED: SCOPOLAMINE 1.5MG/72HR PATCH TRANSDERM ONE (07:44)
[2020-03-28] MEDS ORDERED: ONDANSETRON 4 MG/2 ML VIAL ONE (07:48)
[2020-03-28] MEDS ORDERED: HEPARIN SODIUM,PORCINE 5,000 UNIT/ML 1 ML VIAL ONE (07:53)
[2020-03-28] MEDS ORDERED: LIDOCAINE 1% INJ 10MG/ML (20 ML MDV) ONE (08:35)
[2020-03-28] MEDS ORDERED: MIDAZOLAM 2 MG/2 ML VIAL ONE (08:35)
[2020-03-28] MEDS ORDERED: PROPOFOL 10 MG/ML 20 ML VIAL IV ONE (08:35)
[2020-03-28] MEDS ORDERED: fentaNYL (PF) 50 MCG/ML 2 ML AMP ONE (08:35)
[2020-03-28] MEDS ORDERED: WATER FOR INJECTION, STERILE 10 ML VIAL IV ONE (08:35)
[2020-03-28] MEDS ORDERED: ePHEDrine SULFATE/0.9% NACL/PF 50 MG/5 ML SYRINGE IV ONE (08:35)
[2020-03-28] MEDS ORDERED: KETOROLAC 15 MG/ML 1 ML VIAL ONE (08:35)
--- NOTE | 2020-03-28 09:00 | P.PN ---
Progress Note - Text Progress Note Date: 03/28/20 I have had a discussion again with the patient regarding reexcision of the left breast lumpectomy site. The patient is very concerned about cosmetic outcome. She was given the option of having the reexcision at an outside facility but she declined. She understands if margins are again positive she may well be recommended to have a mastectomy. Since I have last seen her she had additional radiographs performed at a [facility] facility. These were reviewed with our radiologist and no additional areas of concern were identified. Again the patient understands the risks and benefits and wishes to proceed. Risks include but are not limited to bleeding, infection, reaction to the anesthetic. Of concern is the fact that she may have residual positive margin which require further surgery. Additionally the tissues being removed and the cosmetic defect.
[2020-03-28] MEDS ORDERED: LACTATED RINGERS 1,000 ML IV ONE (09:34)
[2020-03-28] MEDS ORDERED: LIDOCAINE 1% INJ 10MG/ML (20 ML MDV) SQ ONE (09:42)
--- NOTE | 2020-03-28 10:21 | P.OP ---
Date of Procedure: 03/28/20 Preoperative Diagnosis: Positive margin and DCIS left breast lumpectomy Postoperative Diagnosis: Same Procedure(s) Performed: Reexcision lumpectomy site Anesthesia: TIMA Surgeon: Lorenza Atkins Estimated Blood Loss (ml): 20 IV fluids (ml): 900 Pathology: other (Ductal carcinoma in situ on prior lumpectomy positive margin) Condition: stable Disposition: same day Indications for Procedure: Lumpectomy with positive ductal carcinoma in situ at margin anterior inferior and lateral Operative Findings: Dense breast tissue/seroma cavity Description of Procedure: The patient is a 54-year-old white female status post left breast lumpectomy for ductal carcinoma in situ. On pathology her anterior inferior and lateral margins were noted to be positive. An MRI was performed which revealed increased uptake at the anterior margin but no diffuse disease in the breast. After discussion she opted for a reexcision of the area. She understood a cosmetically she would have a deformity present. Patient was taken to the operating room and following induction of anesthesia the left breast was prepped and draped in a sterile fashion. The prior incision was excised. The skin of excision was the anterior border. The dissection was followed down to the seroma cavity and wide excision around the cavity was performed. The posterior wall of the cavity was on the pectoralis muscle. A portion of muscle was removed as well. After wide excision was performed the wound was well irrigated. Hemostasis was attained using electrocautery device. Several titanium clips all instrument and sponge counts were correct at the end of the case. The patient tolerated procedure in stable condition. The tissue was freed inferiorly approximately 12 cm x 3 cm for a total of 36 cm of tissue. Superior 8 cm of tissue by 2 cm of tissue for a total of 16 cm of tissue was freed. 50 cm of tissue was freed in total. The resection resulted in the cavity for which a BioSorb was placed. A 3 x 3 BioSorb was placed in the cavity and secured using 3-0 Vicryl suture. The superior and inferior tissues were mobilized and closed using 3-0 Vicryl suture. The tissue was painted for orientation. The subcutaneous tissue was closed using 3-0 Vicryl suture. The skin was closed using 4-0 Monocryl. Steri-Strips were applied. All instrument and sponge counts were correct at the end of the case. The patient tolerated the procedure in stable condition.
--- NOTE | 2020-03-28 10:24 | P.DS ---
Providers Attending physician: Lorenza Atkins Primary care physician: Vasu Mccoy MD Plan - Discharge Summary Discharge Rx Participant: No New Discharge Prescriptions: No Action Cholecalciferol [Vitamin D3 (25 Mcg = 1000 Iu)] 5,000 unit PO QAM Vitamin B Complex 1 cap PO QAM Magnesium 500 mg PO QAM Lidocaine 4% Cream [Lmx 4] 1 applic TOPICAL DAILY PRN PRN Reason: Pain Levothyroxine Sodium [Synthroid] 50 mcg PO QAM Acetaminophen [Tylenol] 500 mg PO DAILY Discharge Medication List Cholecalciferol [Vitamin D3 (25 Mcg = 1000 Iu)] 5,000 unit PO QAM 09/23/17 [History] Vitamin B Complex 1 cap PO QAM 09/23/17 [History] Magnesium 500 mg PO QAM 11/17/17 [History] Lidocaine 4% Cream [Lmx 4] 1 applic TOPICAL DAILY PRN 04/18/18 [History] Acetaminophen [Tylenol] 500 mg PO DAILY 12/14/19 [History] Levothyroxine Sodium [Synthroid] 50 mcg PO QAM 12/14/19 [History] Follow up Appointment(s)/Referral(s): Lorenza Atkins MD [STAFF PHYSICIAN] - 1 Week Patient Instructions/Handouts: *Surgery [facility] - Scopalamine Patch Instructions Activity/Diet/Wound Care/Special Instructions: do not drive for 24 hours from discharge do not drive if taking narcotic pain medication may shower after 48 hours wear bra at all times Discharge Disposition: HOME SELF-CARE
[2020-03-28] MEDS: HYDROmorphone 1 MG/ML 1 ML SYRINGE IVP ONE ×2 (10:35→10:43)
[2020-03-28 10:52] VITALS: TEMP 98
[2020-03-28 10:55] VITALS: RESP 16
[2020-03-28] MEDS ORDERED: HYDROmorphone 0.5 MG/0.5 ML SYRINGE IVP ONE (11:04)
[2020-03-28 11:32] VITALS: BP 129/82; PULSE 80
== END 2020-03-28 12:32 | disposition home or self-care (01) ==
LOC: OR 07:19
PROVIDERS: ATTEND Surgery
DX: D05.12 Intraductal carcinoma in situ of left breast (principal); N60.12 Diffuse cystic mastopathy of left breast; M79.7 Fibromyalgia; E03.9 Hypothyroidism, unspecified; R53.82 Chronic fatigue, unspecified; N64.81 Ptosis of breast; Z88.0 Allergy status to penicillin; Z78.0 Asymptomatic menopausal state; Z98.890 Other specified postprocedural states; Z79.890 Hormone replacement therapy; Z79.899 Other long term (current) drug therapy; Z91.89 Other specified personal risk factors, not elsewhere classified; Z87.898 Personal history of other specified conditions; Z80.3 Family history of malignant neoplasm of breast; Z80.8 Family history of malignant neoplasm of other organs or systems
CPT/HCPCS: 19301; 88307; A4648; J2250; J1644; J1100; J2405; J2001; J3010; J1170 ×2; J1885; J2704

== ENCOUNTER → 2020-04-06 | Outpatient (CLI) | payer BC, OTHER ==
[2020-04-06 14:16] VITALS: BP 123/78; PULSE 73; RESP 18; TEMP 98.1
--- NOTE | 2020-04-06 14:25 | P.PN ---
Progress Note - Text Progress Note Date: 04/06/20 Angela is a 54 year old white female status post left breast lumpectomy. Pathology did not reveal any residual DCIS. Patient is doing well postoperative. Physical exam: Lungs: Clear Heart: Regular rate and rhythm Incision site clean and dry Small seroma present at lumpectomy site patient is not interested in this been aspirated at this time Impression/plan: 1. DCIS left breast completely excised sentinel node negative 2. Appointment with radiation oncology 3. [facility]ointment with [facility] 4. Follow up here in 3 months time CC: Dr. Mccoy
== END | disposition home or self-care (01) ==
LOC: WWCWWP 14:03
PROVIDERS: ATTEND Surgery
DX: Z53.9 Procedure and treatment not carried out, unspecified reason (principal)

== ENCOUNTER 2020-06-04 04:26 | Emergency (ER) | payer BC, OTHER ==
[2020-06-04 04:43] VITALS: BP 138/93; PULSE 71; RESP 18; TEMP 97.8
--- NOTE | 2020-06-04 04:43 | ED ---
URI HPI - General Stated Complaint: Covid test Time Seen by Provider: 06/04/20 04:28 - History of Present Illness Initial Comments: this patient is a 55-year-old woman with upper respiratory infection symptoms. She states that things started on Friday with rhinorrheaand cough. She states that she now is having some congestion bit of yellow discharge. Patient tested positive for parameters. Patient denies pain. Denies dyspnea. MD Complaint: cough, nasal congestion Onset/Timin -: days(s) Severity: mild Associated Symptoms: rhinorrhea, nasal congestion, cough Treatments Prior to Arrival: none - Related Data Home Medications Medication Instructions Recorded Confirmed Cholecalciferol [Vitamin D3 (25 5,000 unit PO QAM 09/23/17 04/06/20 Mcg = 1000 Iu)] Vitamin B Complex 1 cap PO QAM 09/23/17 04/06/20 Magnesium 500 mg PO QAM 11/17/17 04/06/20 Lidocaine 4% Cream [Lmx 4] 1 applic TOPICAL DAILY PRN 04/18/18 04/06/20 Acetaminophen [Tylenol] 500 mg PO DAILY 12/14/19 04/06/20 Levothyroxine Sodium [Synthroid] 50 mcg PO QAM 12/14/19 04/06/20 Allergies Allergy/AdvReac Type Severity Reaction Status Date / Time amoxicillin AdvReac Mild Rapid Verified 04/06/20 14:11 Heart Rate Review of Systems ROS Statement: Those systems with pertinent positive or pertinent negative responses have been documented in the HPI. ROS Other: All systems not noted in ROS Statement are negative. Constitutional: Reports: fever. Denies: chills, weakness ENT: Reports: congestion. Denies: ear pain, throat pain Respiratory: Reports: cough. Denies: dyspnea, wheezes, hemoptysis Gastrointestinal: Denies: abdominal pain, vomiting Skin: Denies: rash Neurological: Denies: headache Past Medical History Past Medical History: Fibromyalgia, GERD/Reflux Additional Past Medical History / Comment(s): Migraines; Bulging discs; pinched nerves - pain in lower back and legs; NT ARMS & LEGS, RIGHT SIDE WORSE.- STATES IMPROVEMENT SINCE LAST PAIN CLINIC PROCEDURE; left breast lumpectomy 02/02/20; History of Any Multi-Drug Resistant Organisms: None Reported Past Surgical History: Section, Orthopedic Surgery, Tonsillectomy Additional Past Surgical History / Comment(s): Sinus surgery; Bilateral Carpal Tunnel; PAIN CLINIC PROCEDURES; 12/23/19 left breast ductal carcinoma in-situ; 02/02/20 left breast lumpectomy and SNB; Past Anesthesia/Blood Transfusion Reactions: Family History of Problems w/ Anesthesia, Postoperative Nausea & Vomiting (PONV) Additional Past Anesthesia/Blood Transfusion Reaction / Comment(s): PATIENT WOKE UP DURING CARPAL TUNNEL SURGERY; MOTHER HAS PONV. Past Psychological History: No Psychological Hx Reported Smoking Status: Never smoker Past Alcohol Use History: Occasional Additional Past Alcohol Use History / Comment(s): Never smoker Past Drug Use History: None Reported - Past Family History Mother Family Medical History: Cancer Additional Family Medical History / Comment(s): Breast and skin cancer General Exam General appearance: alert, in no apparent distress Head exam: Present: atraumatic, normocephalic Eye exam: Present: normal appearance, EOMI. Absent: scleral icterus, conjunc tival injection ENT exam: Present: normal oropharynx, mucous membranes moist Neck exam: Present: normal inspection, full ROM. Absent: meningismus Respiratory exam: Present: normal lung sounds bilaterally. Absent: respiratory distress, wheezes, rales, rhonchi, stridor Cardiovascular Exam: Present: regular rate, normal rhythm, normal heart sounds. Absent: systolic murmur, diastolic murmur, rubs, gallop Neurological exam: Present: alert Skin exam: Present: warm, dry, intact, normal color. Absent: rash Course Vital Signs 06/04/20 04:29 Temperature 97.8 F Pulse Rate 71 Respiratory 18 Rate Blood Pressure 138/93 O2 Sat by Pulse 99 Oximetry Medical Decision Making - Lab Data Lab Results 06/04/20 Range/Units 04:53 Coronavirus (PCR) Not Detected (Not Detectd) Disposition Clinical Impression: Upper respiratory infection Disposition: HOME SELF-CARE Condition: Good Instructions (If sedation given, give patient instructions): Upper Respiratory Infection (ED) Is patient prescribed a controlled substance at d/c from ED?: No Referrals: Vasu Mccoy MD [Primary Care Provider] - 1-2 days
== END 2020-06-04 05:01 | disposition home or self-care (01) ==
LOC: EC 04:26
DX: J06.9 Acute upper respiratory infection, unspecified (principal); Z88.0 Allergy status to penicillin; Z20.828 Contact with and (suspected) exposure to other viral communicable diseases; Z86.69 Personal history of other diseases of the nervous system and sense organs
CPT/HCPCS: 87635; 99283

== ENCOUNTER → 2020-06-05 | Outpatient (CLI) | payer BC, OTHER ==
--- NOTE | 2020-06-05 10:29 | US ---
EXAMINATION TYPE: US thyroid st tissue head/neck DATE OF EXAM: 06/05/2020 COMPARISON: US 2019 CLINICAL HISTORY: E04.1 thyroid nodules. Thyroid nodules, history of thyroid FNA, patient on thyroid meds GLAND SIZE: Right Lobe: 5.0 x 2.4 x 2.3 cm Overall Parenchyma: heterogenous Left Lobe: 5.4 x 1.2 x 1.5 cm Overall Parenchyma: heterogeneous Isthmus Thickness: 0.2 cm NODULES RIGHT: # of nodules measured on right: 2 1. 1.8 X 1.0 x 1.4 cm hypoechoic solid nodule at the mid pole with well-defined margins. This nodul e is wider than tall and shows intranodular vascularity. Prior size: 1.6 x 1.4 x 1.2 cm 2. 2.0 X 1.5 x 2.0 cm hypoechoic solid nodule at the lower pole with well-defined margins. This nodu le is wider than tall and shows intranodular vascularity. Prior size: 2.0 x 2.0 x 1.6 cm LEFT: # of nodules measured on left: 0 ISTHMUS: # of nodules measured in the isthmus: 0 Bilateral neck scanned, no evidence of lymphadenopathy. IMPRESSION: Stable nonspecific thyroid nodularity.
== END | disposition home or self-care (01) ==
LOC: RADUSWWP 09:50
PROVIDERS: ATTEND Otolaryngology
DX: E04.1 Nontoxic single thyroid nodule (principal)
CPT/HCPCS: 76536

== ENCOUNTER → 2020-09-12 | Outpatient (CLI) | payer BC, OTHER ==
--- NOTE | 2020-09-12 14:16 | MM ---
Reason for exam: follow-up at short interval from prior study. Last mammogram was performed 1 year ago. History: Patient is postmenopausal, has history of breast cancer at age 54, and had first child at age 34. Family history of breast cancer in mother at age 50 and breast cancer in maternal aunt at age 60. Malignant MG pre op needle loc LT of the left breast, February 01, 2020. Lumpectomy of the left breast, February 01, 2020. MG discontinued stereo core LT of the left breast, December 17, 2019. Physical Findings: Nurse did not find any significant physical abnormalities on exam. MG 3D Diag Mammo W/Cad NOHEMI Bilateral CC and MLO view(s) were taken. Prior study comparison: September 17, 2019, left breast MG 3d work up w/cad LT. September 10, 2019, bilateral MG 3d screening mammo w/cad. The breast tissue is heterogeneously dense. This may lower the sensitivity of mammography. Post surgical changes. No significant new findings when compared with previous films. These results were verbally communicated with the patient and result sheet given to the patient on 09/12/20. ASSESSMENT: Benign, BI-RAD 2 RECOMMENDATION: Follow-up diagnostic mammogram of both breasts in 1 year.
== END | disposition home or self-care (01) ==
LOC: RADMAMWWP 13:12
PROVIDERS: ATTEND Surgery
DX: R92.8 Other abnormal and inconclusive findings on diagnostic imaging of breast (principal)
CPT/HCPCS: 77062; 77066

== ENCOUNTER → 2020-09-15 | Outpatient (CLI) | payer BC, OTHER ==
[2020-09-15 14:00] VITALS: BP 139/91; PULSE 88; RESP 18; TEMP 98.2
--- NOTE | 2020-09-15 14:15 | P.PN ---
Subjective Progress Note Date: 09/15/20 Principal diagnosis: left breast DCIS Angela is a 55 year old white female who in August 2019 underwent a routine mammogram and was noted to have some microcalcifications of the left breast. Additional views of the left breast. Performed which again revealed coarse heterogeneous group/clustered calcifications in the axillary tail position of the left breast. This was a new finding since August 2018. The patient did not feel any lumps masses or nodules in her breast. She did not complain of any nipple discharge or skin changes. She had not had any trauma or infection in the breast. The stereo biopsy performed on which revealed DCIS. This was ER/NV ne gative. She subsequently underwent a left breast lumpectomy and sentinel node biopsy on 7719. This revealed residual high-grade DCIS involving the anterior inferior and lateral margins. Reexcision was performed on 9119 which did not show any residual DCIS. She underwent radiation therapy which she finished in May 2020. She did not have any other adjuvant therapy, no hormonal or chemotherapy. She does not feel any lumps masses or nodules for which she is concerned in either breast. She does not have any nipple discharge or skin changes for which she is concerned. Family history: mother: breast cancer at 50 maternal aunt breast cancer in her 50's mother: skin cancer/melanoma and SCC (had chemotherapy) Hormonal History: menarche: 15 , 1 miscarraige, breast fed: yes; first born at 38 menopause: 50 BCP: none hormones: none Surgical history: 1.nasal surgery 2. 3. pain shots in back 4. left breast lumpectomy and SNB, re-excision for margins Medical History: Fibromyalgia hypothyroid chronic fatigue bone on bone on hip right Social History: smoke: none alcohol: red wine drugs: none - Constitutional Constitutional: Denies chills, Denies fever - EENT Eyes: bilateral decreased vision Ears: bilateral: tinnitus Ears, nose, mouth and throat: Reports headache - Breasts Breasts: bilateral: as per HPI - Cardiovascular Cardiovascular: Denies chest pain, Denies shortness of breath - Respiratory Respiratory: Denies cough - Gastrointestinal Gastrointestinal: Denies abdominal pain, Denies diarrhea, Denies nausea, Denies vomiting - Genitourinary (Female) Genitourinary: Denies dysuria, Denies hematuria - Menstruation Menstruation: Reports postmenopausal - Musculoskeletal Comment: muscle aches and pains/fibromyalgia? - Integumentary Integumentary: Denies pruritus, Denies rash - Neurological Comment: Peripheral neuropathy of unknown etiology Neurological: Denies numbness, Denies weakness - Psychiatric Psychiatric: Denies anxiety, Denies depression - Endocrine Comment: hypothyroid - Hematologic/Lymphatic Comment: none - Allergic/Immunologic Allergic/Immunologic: Reports seasonal allergies Objective - Vital Signs Vital signs: Vital Signs Temp 98.2 F 09/15/20 13:57 Pulse 88 09/15/20 13:57 Resp 18 09/15/20 13:57 BP 139/91 09/15/20 13:57 Pulse Ox 97 09/15/20 13:57 Intake & Output 09/14/20 09/15/20 09/15/20 18:59 06:59 18:59 Weight 78.925 kg - Exam BMI 26.5 - Constitutional General appearance: Present: average body habitus - EENT Eyes: Present: EOMI ENT: Present: hearing grossly normal - Neck Neck: Present: normal ROM - Respiratory Respiratory: bilateral: CTA - Cardiovascular Rhythm: regular Heart sounds: normal: S1, S2 - Gastrointestinal General gastrointestinal: Present: normal bowel sounds, soft - Integumentary Integumentary: Present: normal turgor - Psychiatric Psychiatric: Present: A&O x's 3, appropriate affect, intact judgment & insight - Additional findings Additional findings: Breat exam: BRA: 36C inspection: radiation change left breast palpation: right breast: multipositional exam no dominate masses or nodules of concern right axilla: No adenopathy of concern Left breast: Well-healed scar from prior surgery, postop changes and radiation changes otherwise no dominant masses or nodules of concern Left axilla: No adenopathy of concern Assessment and Plan Assessment: Impression: Fibromyalgia hypothyroid chronic fatigue bone on bone on hip right DCIS left breast no recurrence Plan: bilateral mammogram 1 year follow up here 4 months for exam continue to follwo with radiation oncology CC: DR. Mccoy Encounter 15 minutes time spent in reviewing medical records, physical exam, and counselling.
== END | disposition home or self-care (01) ==
LOC: WWCWWP 13:33
PROVIDERS: ATTEND Surgery
DX: R92.1 Mammographic calcification found on diagnostic imaging of breast (principal); Z98.890 Other specified postprocedural states; M79.7 Fibromyalgia; E03.9 Hypothyroidism, unspecified; R53.82 Chronic fatigue, unspecified; Z85.3 Personal history of malignant neoplasm of breast

== ENCOUNTER → 2020-11-08 | Outpatient (CLI) | payer BC, OTHER ==
[2020-11-08 15:10] VITALS: BP 135/82; PULSE 73; RESP 18; TEMP 98
--- NOTE | 2020-11-08 15:19 | P.PN ---
Subjective Progress Note Date: 11/08/20 This is a follow-up visit for this 55 years old female with a chronic history of severe low back pain, with radiation to the right buttock and right groin, into the right thigh, previously we have been right side sacroiliac joint injection, he had good benefit from it , over the last few months her intensity of the pain increased significantly, is constant and increases with any activities that should be walking or changing positions increase her pain level, she continued to use pain medication and tramadol 50 mg every 6 hours when necessary, lidoderm patch, he denies any motor or sensory deficit she denies any fever or night sweats Objective - Vital Signs Vital signs: Vital Signs Temp 98.0 F 11/08/20 14:58 Pulse 73 11/08/20 14:58 Resp 18 11/08/20 14:58 BP 135/82 11/08/20 14:58 Pulse Ox 95 11/08/20 14:58 Intake & Output 11/07/20 11/08/20 11/08/20 18:59 06:59 18:59 Weight 78.471 kg - Exam Physical Examinations : -Constitutiona : Cooperative , not in acute distress . -HEENT : nech : supple , no Lymphadenopathy , normal thyroid size . : eyes : no ptosis , no icterus, no photophobia . - neurologic : Cranial nerve II to XII intact , no focal neurological deffecit . -psychatric : alert , oriented X 3 , appropriate affect , intact judgment and insight . -Lymphatic : no Lymphadenopathy . - musculoskeltal : Lumber spine moter stegnth lower extremities ,thigh and legs 5/5 Right side , 5/5 Left side deep tendon reflexes : normal Knee Jerk , normal ankle Jerk lumber facet Loading Test =positive Right , positive Left Range of motion of the lumbar spine Flexion 30 degrees, extension 10 degrees strait leg raising test = positive at 45 degree degree on the right side Fabere test= positive Right , and positive LT . Sever tenderness over the Sacroiliac joint on the Right , and Left sides Gaenslen test= positive right . Seated flexion test= positive right . Distraction test= positive right hip joints= adduction and abduction, and lateral rotation of the right hip associated with severe pain MRI of the lumbar spine= multilevel lumbar degenerative disc disease, multilevel lumbar facet arthropathy Assessment and Plan Plan: Assessment and plan=1-right sacroiliitis. 2-right hip arthralgia. 3-lumbar spondylosis and lumbar facet arthropathy. she could benefits from Voltaren gel 1% to be applied to the right-sided low back area twice daily She could benefit from right-sided sacroiliac joint steroid injection under fluoroscopy guidance, and she could benefit from right Hip joint steroid injection under fluoroscopic guidance - PQRS measures = - Patient's medications are documented in the chart. -Tobacco use is negative and counseling.Given. -Patient's has not received pneumococcal vaccine. -Advanced care planning discussed, patient not eligible. -Opiate contract not signed. -Pain positive and follow-up visit/procedure is scheduled. -Patient's blood pressure measured [135/82 ] , and documented in the record ,and patient will follow up with the primary care. -Patient's weight was measured and body mass index [ 26 ] above the normal limits and counseling was done. and patient instructed to follow-up with the primary care physician. -Patient was not identified as an unhealthy alcohol user Time with Patient: Less than 30
== END ==
LOC: PNWHC3 13:59
PROVIDERS: ATTEND Specialist
DX: M47.816 Spondylosis without myelopathy or radiculopathy, lumbar region (principal); M46.1 Sacroiliitis, not elsewhere classified; M25.551 Pain in right hip
CPT/HCPCS: 99211

== ENCOUNTER 2020-11-21 06:14 | Day surgery (SDC) | payer BC, OTHER ==
[2020-11-20 08:16] VITALS: BMI 26.1
[~2020-11-21 06:14] MED LIST changes: -HEPARIN SODIUM,PORCINE 5,000 UNIT/ML 1 ML VIAL SQ ONE; +LACTATED RINGERS 1,000 ML IV SCH; -Pre Op ABX Message 1 EACH MISC MISCELLANE ONE
[2020-11-21 06:42] VITALS: TEMP 98
[2020-11-21] MEDS ORDERED: methylPREDNISolone ACETATE 40 MG/ML 1 ML VIAL ONE (06:55)
[2020-11-21] MEDS ORDERED: ROPIVACAINE 5MG/ML 20ML VIAL ONE (06:55)
[2020-11-21] MEDS ORDERED: IOPAMIDOL M200 10 ML VIAL ONE (06:55)
[2020-11-21] MEDS ORDERED: LACTATED RINGERS 1,000 ML IV SCH (07:00)
[2020-11-21] MEDS ORDERED: ONDANSETRON ODT 4 MG TAB PO ONE (07:17)
[2020-11-21 07:19] VITALS: RESP 18
[2020-11-21 07:28] VITALS: BP 132/67; PULSE 64
--- NOTE | 2020-11-21 07:46 | P.PCN ---
Date of Procedure: 11/21/20 Description of Procedure: Procedure: Sacroiliac joint injection on the right Preoperative diagnosis: Sacroiliitis Postoperative diagnosis: Sacroiliitis Imaging: Fluoroscopy was used, images where saved to the medical record Complications: none Anesthesia: 1% lidocaine 5cc Description of the procedure: procedure risk and benefits discussed with the patient, including but not limited, risk of infection and bleeding, and allergic reaction to the medication and incomplete pain relief. Patient agreed and signed consent. Patient was taken to the room and placed in a prone position. Chlorhexidine was used to cleanse the skin. Under sterile conditions patient skin was anesthetized 1% lidocaine. Subcutaneous tissues were also anesthetized with a total 5 mL of 1% lidocaine. After that, a 22-gauge spinal needle was advanced through the anesthetized location under fluoroscopic guidance. Needle was advanced into the inferior portion of the sacroiliac joint. IV contrast was used to confirm spread within the joint. After adequate spread was achieved, 2.5 ML's of 0.5% ropivacaine with 20 mg of depomedrol was injected into the joint (steroid split between both sides if bilateral). Patient tolerated the procedure well. Sent to the recovery room in stable condition. Patient will follow up as directed.
--- NOTE | 2020-11-21 07:47 | P.PCN ---
Date of Procedure: 11/21/20 Description of Procedure: Pre OP diagnoses: Right trochanteric bursitis Postoperative diagnosis: Right trochanteric bursitis Procedure: Right Trochanteric bursa injection under fluoroscopy Imaging: Fluoroscopy was used, images where saved to the medical record Anesthesia: Local with 1% lidocaine Description of the procedure: Risks, benefits, and alternatives of the procedure including but not limited to risk of infection, bleeding and incomplete pain relief, possible allergic reaction to medications were discussed with the patient along with the alternatives were also discussed with the patient and they agreed to proceed to the operating room. The patient was Placed in the supine position and standard monitors applied patient. The XXX back and the hip area prepped with chlorhexidine 3 times, and under sterile technique a 25g 1.5" needle was used to anesthetize the skin with 5ml of 1% lidocaine. After adequete localization, a 22g spinal needle was advanced under fluoroscopy to the trochanteric bursa under fluoroscopy and placed in the trochanteric bursa. Confirmation of the procedure was done under fluoroscopy. After negative aspiration, 5 mL of 0.5% ropivacaine along with 20mg of depomedrol was placed into the bursa. Patient tolerated the procedure well. Complications: none Follow up: Discharge material was given to the patient along with aftercare instructions. Patient will follow up as directed.
--- NOTE | 2020-11-21 08:05 | FL ---
EXAMINATION TYPE: FL guided pain mgmt statistic DATE OF EXAM: 11/21/2020 HISTORY: Fluoroscopy time 9 seconds of fluoroscopy provided. IMPRESSION: 1. Fluoroscopy time.
== END 2020-11-21 07:43 | disposition home or self-care (01) ==
LOC: ORPAIN 06:14
PROVIDERS: ATTEND Hospitalist
DX: M46.1 Sacroiliitis, not elsewhere classified (principal); M70.61 Trochanteric bursitis, right hip; Z88.8 Allergy status to other drugs, medicaments and biological substances
CPT/HCPCS: 27096; 20610; J1030; Q9966; J2795

== ENCOUNTER → 2021-01-31 | Outpatient (CLI) | payer BC, OTHER | END | disposition home or self-care (01) | CPT/HCPCS: 36415; 80053; 85027; 85610; 85730; 86850; 86900; 86901; 87070 ==

== ENCOUNTER 2021-02-06 05:31 | Day surgery (SDC) | payer BC, OTHER ==
[2021-02-02 15:11] VITALS: BMI 26.6
[~2021-02-06 05:31] MED LIST changes: +ACETAMINOPHEN TAB 500 MG TAB PO PRN; +DEXAMETHASONE SOD PHOSPHATE 4 MG/ML 1 ML VIAL IV ONE; +GABAPENTIN 300 MG CAP PO PRN; +LIDOCAINE 1% (10MG/ML) FOR IV START INTRADERMA PRN; +MELOXICAM 7.5 MG TAB PO PRN; +ONDANSETRON 4 MG/2 ML VIAL IVP ONE; +SCOPOLAMINE 1.5MG/72HR PATCH TRANSDERM ONE; +TRANEXAMIC ACID 1,000 MG in SODIUM CHLORIDE 0.9% 100 ML IVPB PRN
[2021-02-06] MEDS ORDERED: SODIUM CHLORIDE 0.9% 100 ML BAG ONE (06:56)
[2021-02-06] MEDS ORDERED: ROCURONIUM 10 MG/ML (5 ML VIAL) IV ONE (06:56)
[2021-02-06] MEDS ORDERED: GLYCOPYRROLATE 0.2 MG/ML 2 ML VIAL ONE (06:56)
[2021-02-06] MEDS ORDERED: TRANEXAMIC ACID 1,000 MG/10 ML VIAL ONE (06:56)
[2021-02-06] MEDS ORDERED: SODIUM CHLORIDE 0.9% IRRIG 1,000 ML BTL IRRIGATION ONE (06:56)
[2021-02-06] MEDS ORDERED: HYDROmorphone (PF) 1 MG/ML ONE (06:56)
[2021-02-06] MEDS ORDERED: SUCCINYLCHOLINE CHLORIDE 100 MG/5 ML SYR IV ONE (06:56)
[2021-02-06] MEDS ORDERED: HEPARIN SODIUM,PORCINE 10,000 UNIT/ML 1 ML VIAL ONE (06:56)
[2021-02-06] MEDS ORDERED: KETOROLAC 15 MG/ML 1 ML VIAL ONE (06:56)
[2021-02-06] MEDS ORDERED: LIDOCAINE 1% INJ 10MG/ML (20 ML MDV) ONE (06:56)
[2021-02-06] MEDS ORDERED: PROPOFOL 10 MG/ML 20 ML VIAL IV ONE (06:56)
[2021-02-06] MEDS ORDERED: fentaNYL (PF) 50 MCG/ML 2 ML AMP ONE (06:56)
[2021-02-06] MEDS ORDERED: MIDAZOLAM 2 MG/2 ML VIAL ONE (06:56)
[2021-02-06] MEDS ORDERED: NEOSTIGMINE 1 MG/ML 10 ML VIAL ONE (06:56)
[2021-02-06] MEDS ORDERED: ceFAZolin 1,000 MG in SODIUM CHLORIDE 0.9% 1,000 ML IRRIGATION ONE (06:58)
[2021-02-06] MEDS ORDERED: HYDROmorphone 0.5 MG/0.5 ML SYRINGE IVP PRN (07:02)
[2021-02-06] MEDS ORDERED: HYDROmorphone 1 MG/ML 1 ML SYRINGE IVP PRN (07:02)
[2021-02-06] MEDS ORDERED: HYDROmorphone 0.2 MG/1 ML SYRINGE IVP PRN (07:02)
[2021-02-06] MEDS ORDERED: NALOXONE 0.4 MG/ML 1 ML VIAL IV PRN (07:02)
[2021-02-06] MEDS ORDERED: HYDROcodone/APAP 7.5-325MG 1 EACH TAB PO PRN ×2 (07:03)
[2021-02-06] MEDS ORDERED: SODIUM CHLORIDE 0.9% 1,000 ML IV SCH (07:15)
[2021-02-06] MEDS: ROPIVACAINE/EPI/CLONIDINE/KET 50 ML SYRINGE MISCELLANE PRN ×2 (07:24→08:14)
--- NOTE | 2021-02-06 08:46 | P.OP ---
Date of Procedure: 02/06/21 Preoperative Diagnosis: severe osteoarthritis right hip Postoperative Diagnosis: severe osteoarthritis right hip Procedure(s) Performed: right total hip arthroplasty with a direct anterior approach Implants: [employer] Polarstem standard size 5 [employer] R3, 3 hole hemispherical acetabular shell, 52 mm [employer] Reflection 6.5 mm cancellus screw, 20 mm 2 [employer] R3, XLPE 20 acetabular liner [employer] Oxinium femoral head 36 m, +0 All components were press-fit. The articulation is Oxinium on polyethylene. Anesthesia: GETA Surgeon: Perry Romero Metal Weigher #1: Esther Elise Estimated Blood Loss (ml): 350 (149 mL returned with Cell Saver) Pathology: other (femoral head) Condition: stable Disposition: PACU Indications for Procedure: After failure of conservative treatment we discussed the surgical and nonsurgical treatment options at length. Patient wishes to proceed with a total hip arthroplasty with a direct anterior approach. Complications specific to this procedure were discussed at length, including but not limited to infection, leg length discrepancy, dislocation, nerve injury, and fracture. Covid-19 was also discussed at length with the patient, and they are aware of the current policies and procedures. The patient was given the option of delaying surgery, but they elect to proceed knowing these risks. Patient is aware of all these complications and informed consent was obtained Operative Findings: the operative findings are consistent with severe osteoarthritis of the right hip Description of Procedure: Patient was seen and evaluated in the preoperative area and the consent was reviewed. The operative site was marked with a skin marker. The patient was then brought to the operating room and given preoperative antibiotics intravenously. 1 g of Tranexamic acid was also given intravenously. A general anesthetic was administered by the anesthesia department. The patient was then placed on the [place] table with the bony prominences well-padded. The hip area was then prepped with a ChloraPrep solution and draped in the usual sterile fashion. A universal timeout was then performed, which confirmed the patient's name, surgical site, ALLERGIES, and procedure being performed on the consent. Next the incision site was located at 1 cm distal to the anterior superior iliac spine along the flexion crease of the hip. The skin and subcutaneous tissues were sharply incised. Incision was carefully dissected down to the fascia overlying the tensor fascia bryant muscle. This fascia was then incised in line with the incision. Care was taken to stay laterally in order to avoid injuring the lateral femoral cutaneous nerve. Next, using blunt finger dissection, the tensor fascia bryant muscle was dissected off its investing fascia. The muscle was then carefully retracted laterally with a cobra retractor over the lateral neck of the femur. Next, the circumflex vessels were identified and cauterized using the AquaMantis device. The anterior hip capsule was then exposed. The capsule was then opened and an inverted T fashion. Cobra retractors were then placed intracapsularly. The retractors were maintained intracapsular throughout the procedure. The proximal femur was then visualized. A small amount of traction was placed on the leg. The femoral neck was then osteotomized appropriate level above the lesser trochanter. A small wedge of bone was then removed from the remaining femoral head. Next, using a corkscrew the femoral head was removed from the acetabulum. On gross visual inspection, the femoral head had complete loss of articular cartilage and multiple periarticular osteophytes. The femoral head was then measured. Attention was then turned to the acetabulum. The acetabulum was exposed and any remaining labrum was excised. Sequential reaming of the acetabulum was performed using fluoroscopic guidance until there was a good bed of bleeding cancellus bone. When the appropriate size was reached, a trial was then placed. The position and fit of the trial was checked with fluoroscopy. The trial was then removed. Then, using fluoroscopic guidan ce, the final implant was impacted at 20 of anteversion and 40 of abduction, and fully seated in the acetabulum. 2 screws were then placed in the acetabulum. Again fluoroscopy was used to check position of the screws. Next, the liner was then impacted, with a 20 elevated liner located in the anterior superior quadrant. Component locking was confirmed. Attention was then directed to the femur. With the aid of the [place] table, the femur was externally rotated to approximately 130, extended, and adducted under the opposite leg. A side hook was then placed under the proximal femur, and the side hook elevator was used to elevate the proximal femur while releasing the capsule. Retractors were then placed. A capsular release was performed, as well as a release of the conjoined tendon, which afforded excellent visualization of the proximal femur. Next, a box osteotome was used to lateralize the proximal femur. A block chopper hand was then used to locate the femoral canal. Sequential broaching was then performed with appropriate size which afforded excellent fixation in the proximal femur. A trial was then placed with appropriate head and neck, and the hip was gently reduced with the aid of the [place] table. Fluoroscopy was then used to check position of the components, as well as to ensure equal leg lengths. The hip was then gently dislocated and the trials were then removed. Final implants were then impacted and the hip was again reduced. Final fluoroscopic x-rays confirmed that the components were in anatomic position, as well as equal leg lengths. The hip was also taken through range of motion, and found to be stable. The hip was then copiously irrigated with antibiotic solution with pulsatile lavage. The hip was then irrigated with Irrisept solution. The soft tissues were then injected with a ropivacaine solution, which consisted of 246.25 mg of ropivacaine, 0.5 mg of epinephrine, 30 mg of Toradol, 80 g of clonidine, and 48.45 mL of sterile water, for a total of 100 mL of fluid injected. A second dose of 1 g of Tranexamic acid was also given intravenously. Any blood collected by Cell Saver was then returned to the patient at this time. The fascia was then closed with 2-0 strata fix suture. The subcutaneous tissue was closed with 3-0 Vicryl. The subcuticular tissue was closed with 3-0 strata fix suture. The skin was then closed with Exofin skin glue. After the glue and dried, and Optifoam silver impregnated dressing was applied. The patient was then transferred to the recovery room in stable condition. The safety admin assistant STACY Ornelas was required due to the complexity of surgery, and the need for skilled assistant manager retail for positioning, draping, exposure, retraction, and closure of the wound.
[2021-02-06 08:48] VITALS: TEMP 97.1
[2021-02-06] MEDS: HYDROmorphone 0.5 MG/0.5 ML SYRINGE IVP PRN ×4 (08:52→09:13)
[2021-02-06] MEDS ORDERED: diphenhydrAMINE 50 MG/ML 1 ML VIAL IVP ONE (09:14)
--- NOTE | 2021-02-06 09:25 | XR ---
EXAMINATION TYPE: XR Hip Limited RT DATE OF EXAM: 02/06/2021 CLINICAL HISTORY: Right hip pain and osteoarthritis. TECHNIQUE: Single AP portable view of right hip is obtained immediately postoperatively. COMPARISON: None. FINDINGS: Metallic hardware from right hip arthroplasty is seen and appears satisfactory in alignment and position. 2 acetabular screws are present. There is evidence of recent surgery with subcutaneou s gas noted laterally. Degenerative changes are noted in the pubic symphysis. IMPRESSION: Metallic hardware from right hip arthroplasty is satisfactory in position.
[2021-02-06 10:55] VITALS: RESP 18
--- NOTE | 2021-02-06 11:07 | FL ---
EXAMINATION TYPE: FL guidance operating room, XR Hip Limited RT DATE OF EXAM: 02/06/2021 CLINICAL HISTORY: Right hip arthroplasty TECHNIQUE: Fluoroscopy. COMPARISON: None. FINDINGS: Fluoroscopic guidance was provided during procedure performed by Dr. Romero. A total of 24 seconds of fluoroscopic time was utilized during the procedure and 2 spot images was acquired. IMPRESSION: As Above.
[2021-02-06 12:14] VITALS: BP 104/69; PULSE 73
== END 2021-02-06 13:31 | disposition home health service (06) ==
LOC: OR 05:31
PROVIDERS: ATTEND Orthopaedic Surgery
DX: M16.11 Unilateral primary osteoarthritis, right hip (principal); M79.7 Fibromyalgia; G62.9 Polyneuropathy, unspecified; K30 Functional dyspepsia; E07.9 Disorder of thyroid, unspecified; Z82.49 Family history of ischemic heart disease and other diseases of the circulatory system; Z98.890 Other specified postprocedural states; Z79.899 Other long term (current) drug therapy; Z79.891 Long term (current) use of opiate analgesic; Z79.890 Hormone replacement therapy; Z88.1 Allergy status to other antibiotic agents; K21.9 Gastro-esophageal reflux disease without esophagitis
CPT/HCPCS: 97110; 97161; 86891; 86900; 86901; 88305; 86850; 88311; 73501; 27130; C1776; J2250; J1200; J1644; J1100; J2710; J0690 ×2; J2405; J2001; J3010; J1170 ×2; J1885; J0330; J2704

== ENCOUNTER → 2021-07-02 | Outpatient (CLI) | payer BC, OTHER ==
--- NOTE | 2021-07-03 12:31 | CT ---
EXAMINATION TYPE: CT angio chest DATE OF EXAM: 07/02/2021 COMPARISON: NONE HISTORY: Elevated d-dimer and cough. History of covid. CT DLP: 273.8 mGycm. Automated Exposure Control for Dose Reduction was Utilized. CONTRAST: CTA scan of the thorax is performed with IV Contrast, patient injected with 60ml mL of Isovue 370, pu lmonary embolism protocol. MIP Images are created on CT scanner and reviewed. FINDINGS: LUNGS: Some respiratory motion artifact degradation otherwise the lungs are grossly clear, there is n o concerning parenchymal mass or nodule identified. Mild reticulation or fibrosis along the periphery of the left lung anteriorly. There is no pleural effusion or pneumothorax seen. The tracheobronchi al tree is patent. MEDIASTINUM: There is suboptimal study with near equal contrast in the aorta and pulmonary arteries b ut no convincing CT evidence for acute pulmonary embolism. Satisfactory enhancement of the aorta with out dissection. Ascending aorta measures up to 3.9 cm in diameter axial image 64 at level of main pul monary artery. There are no greater than 1 cm hilar or mediastinal lymph nodes. No cardiomegaly or pericardial effusion is seen. OTHER: Surgical changes to the left breast upper outer quadrant noted. IMPRESSION: Suboptimal study without acute pulmonary embolism. No acute pulmonary process. Mild fibro tic change anterior left lung likely on the basis of treatment for left breast cancer.
== END | disposition home or self-care (01) ==
LOC: RADCTMAIN 16:21
PROVIDERS: ATTEND Family Medicine
DX: R79.1 Abnormal coagulation profile (principal)
CPT/HCPCS: 71275; Q9967

== ENCOUNTER → 2021-07-03 | Outpatient (CLI) | payer BC, OTHER ==
--- NOTE | 2021-07-04 08:29 | US ---
EXAMINATION TYPE: US thyroid st tissue head/neck DATE OF EXAM: 07/03/2021 COMPARISON: US 06/05/2020 CLINICAL HISTORY: E04.1 Nontoxic single thyroid nodule. GLAND SIZE: Right Lobe: 5.6 x 1.8 x 2.6 cm Overall Parenchyma: heterogenous Left Lobe: 5.1 x 1.4 x 1.7 cm Overall Parenchyma: heterogeneous Isthmus Thickness: 0.3 cm NODULES RIGHT: # of nodules measured on right: 2 1. 1.8 X 1.0 x 1.6 cm, mid mid, solid or almost completely solid, hypoechoic nodule, which is wider than tall, with smooth margins, without echogenic foci. Prior size: 1.8 x 1.0 x 1.4 cm 2. 2.3 X 1.7 x 2.2 cm, lower mid, solid or almost completely solid, hypoechoic nodule, which is wid er than tall, with smooth margins, without echogenic foci. This is slightly enlarged comparison. TR 4 Prior size: 2.0 x 1.5 x 2.0 cm LEFT: # of nodules measured on left: 1 1. 1.1 X 0.5 x 0.7 cm, upper mid, solid or almost completely solid, hyperechoic nodule, which is wi oral than tall, with ill-defined margins, without echogenic foci. Prior size: no previous ISTHMUS: # of nodules measured in the isthmus: 0 Bilateral neck scanned, no evidence of lymphadenopathy. IMPRESSION: Moderately suspicious nodule lower pole right lobe thyroid. Fine-needle aspiration is recommended. 2017 ACR TI-RADS LEVEL: TR-RADS 4 - Moderately Suspicious: Follow if > 1 cm, FNA if > 1.5 cm *Highest TI-RADS level nodule reported
== END | disposition home or self-care (01) ==
LOC: RADUSWWP 15:45
PROVIDERS: ATTEND Family Medicine
DX: E04.1 Nontoxic single thyroid nodule (principal)
CPT/HCPCS: 76536

== ENCOUNTER → 2021-07-12 | Outpatient (CLI) | payer BC, OTHER ==
--- NOTE | 2021-07-12 17:06 | US ---
EXAMINATION TYPE: US venous doppler duplex LE BI DATE OF EXAM: 07/12/2021 2:47 PM COMPARISON: NONE CLINICAL HISTORY: 56-year-old female R79.1 Abnormal coagulation profile. SIDE PERFORMED: Bilateral TECHNIQUE: The lower extremity deep venous system is examined utilizing real time linear array sonog atul with graded compression, doppler sonography and color-flow sonography. FINDINGS: VESSELS IMAGED: Common Femoral Vein Deep Femoral Vein Greater Saphenous Vein * Femoral Vein Popliteal Vein Small Saphenous Vein * Proximal Calf Veins (* superficial vessels) Right Leg: Negative for DVT Left Leg: Negative for DVT IMPRESSION: No evidence for DVT within the bilateral lower extremities imaged from the groins to the upper calves .
== END | disposition home or self-care (01) ==
LOC: RADUSWWP 14:21
PROVIDERS: ATTEND Family Medicine
DX: R79.1 Abnormal coagulation profile (principal)
CPT/HCPCS: 93970

== ENCOUNTER → 2021-10-19 | Outpatient (CLI) | payer BC, OTHER ==
--- NOTE | 2021-10-23 07:50 | MM ---
Reason for exam: additional evaluation requested from prior study. Last mammogram was performed 1 year and 1 month ago. History: Patient is postmenopausal, has history of breast cancer at age 54, and had first child at age 34. Family history of breast cancer in mother at age 50 and breast cancer in maternal aunt at age 60. Malignant MG pre op needle loc LT of the left breast, February 01, 2020. Lumpectomy of the left breast, February 01, 2020. MG discontinued stereo core LT of the left breast, December 17, 2019. Physical Findings: A clinical breast exam by your physician is recommended on an annual basis and results should be correlated with mammographic findings. MG 3D Diag Mammo W/Cad NOHEMI Bilateral CC and MLO view(s) were taken. Prior study comparison: September 12, 2020, bilateral MG 3d diag mammo w/cad NOHEMI. September 17, 2019, left breast MG 3d work up w/cad LT. The breast tissue is heterogeneously dense. This may lower the sensitivity of mammography. Finding: Architectural distortion in the upper outer quadrant, posterior position of the left breast consistent with know post treatment changes. There is no discrete abnormality. ASSESSMENT: Benign, BI-RAD 2 RECOMMENDATION: Follow-up diagnostic mammogram of both breasts in 1 year.
== END | disposition home or self-care (01) ==
LOC: RADMAMWWP 14:55
PROVIDERS: ATTEND Surgery
DX: Z85.3 Personal history of malignant neoplasm of breast (principal)
CPT/HCPCS: 77062; 77066

== ENCOUNTER → 2021-12-18 | Outpatient (CLI) | payer BC, OTHER ==
--- NOTE | 2021-12-18 16:10 | CT ---
EXAMINATION TYPE: CT knee LT wo con DATE OF EXAM: 12/18/2021 COMPARISON: None provided HISTORY: fx lt knee CT DLP: 533.6 mGycm Automated exposure control for dose reduction was used. Helical imaging through the left knee. Three- dimensional reconstructions performed on an alternate workstation and reviewed. FINDINGS: There is a comminuted intraarticular, minimally displaced proximal tibial fracture within the left kn ee. There is subcutaneous edema. Joint effusion is present. IMPRESSION: PROXIMAL TIBIAL FRACTURE as described
== END | disposition home or self-care (01) ==
LOC: RADCTMAIN 15:22
PROVIDERS: ATTEND Orthopaedic Surgery
DX: S82.192A Other fracture of upper end of left tibia, initial encounter for closed fracture (principal); X58.XXXA Exposure to other specified factors, initial encounter

== ENCOUNTER → 2022-02-14 | Outpatient (CLI) | payer BC, OTHER ==
--- NOTE | 2022-02-16 05:21 | MR ---
EXAMINATION TYPE: MR shoulder RT wo con DATE OF EXAM: 02/14/2022 COMPARISON: None HISTORY: Right shoulder pain, heard a pop 3 mos ago, pain since then. Multiplanar multiecho imaging of the right shoulder with no contrast. There is some mild spurring at the AC joint. No significant subacromial impingement. Biceps tendon is intact. Subscapularis tendon is intact. There is osteoarthritis in the glenohumeral joint with joint space narrowing. The glenoid red appear intact. There is subchondral degenerative cyst formation i n the glenoid. There is some hypertrophic spurring at the articular surface of the humeral head. There are some mild degenerative signal changes in the supraspinatus tendon. There is no retraction. No definite full-thickness tear. The infraspinatus tendon is intact. No fracture seen. There is small shoulder joint effusion. IMPRESSION: Osteoarthritis. Small shoulder joint effusion consistent with some synovitis. Degenerative cyst forma tion in the glenoid. Intrasubstance tears of the supraspinatus tendon without a full-thickness tear.
== END | disposition home or self-care (01) ==
LOC: RADMRIMAIN 11:36
PROVIDERS: ATTEND Orthopaedic Surgery
DX: S43.431A Superior glenoid labrum lesion of right shoulder, initial encounter (principal); M19.071 Primary osteoarthritis, right ankle and foot

== ENCOUNTER → 2022-02-28 | Outpatient (CLI) | payer BC, OTHER ==
--- NOTE | 2022-02-28 13:16 | XR ---
Limited left knee HISTORY: Medial tibial plateau fracture, trauma 12/16/21 2 views of the left knee correlated to CT dated 12/19/2019 Postop changes noted to the proximal tibia status post open reduction internal fixation. There is dec reased bone mineralization. Anatomic alignment is noted. Suprapatellar increased density suggests hawk nt effusion. Suspect some mild osteoarthritic changes in the knee. No evident dislocation. Fracture l ine only faintly noted on the lateral view likely due to healing. IMPRESSION: Orthopedic follow-up
== END | disposition home or self-care (01) ==
LOC: RADXRMAIN 09:52
PROVIDERS: ATTEND Physician Assistant
DX: S82.132A Displaced fracture of medial condyle of left tibia, initial encounter for closed fracture (principal); X58.XXXA Exposure to other specified factors, initial encounter

== ENCOUNTER → 2022-03-01 | Outpatient (CLI) | payer BC, OTHER ==
--- NOTE | 2022-03-01 11:41 | BD ---
EXAMINATION TYPE: Axial Bone Density DATE OF EXAM: 03/01/2022 COMPARISON: NONE CLINICAL HISTORY: 56 years year old Female. ICD-10 CODE: Z85.3 BREAST CA Height: 5'8 Weight: 165 FRAX RISK QUESTIONS: History of Fracture in Adulthood: Y Secondary Osteoporosis: RISK FACTORS HISTORY OF: Surgery to Hip(right/): total rt hip When: 2020 Postmenopausal woman: y MEDICATIONS: Thyroid Medications: Which medication: Levothyroxine How Lon years Additional Medications: blood pressure Additional History: EXAM MEASUREMENTS: Bone mineral densitometry was performed using the [employer] System. Bone mineral density as measured about the Lumbar spine is: ----- L1-L4(G/cm2): 1.047 T Score Values are as follows: ----- L1: -1.3 ----- L2: -2.7 ----- L3: -0.6 ----- L4: -0.4 ----- L1-L4: -1.1 Bone mineral density about the L hip (g/cm2): 0.759 T Score values are as follows: -----L Neck: -2.0 -----L Total: -1.3 FRAX%s: The graph provided illustrates a 13.9% chance for a major osteoporotic fx and a 1.9% chance f or the hips probability for fx in 10 years time. IMPRESSION: Osteopenia (T Score between -2.5 and -1). There is slightly increased risk of fracture and the patient may be considered for treatment. Re-Screen 2-5 years. NOTE: T-SCORE=SD OF THE YOUNG ADULT MEAN.
== END | disposition home or self-care (01) ==
LOC: RADBDWWP 09:46
PROVIDERS: ATTEND Orthopaedic Surgery
DX: Z85.3 Personal history of malignant neoplasm of breast (principal)
CPT/HCPCS: 77080

== ENCOUNTER → 2022-03-01 | Outpatient (CLI) | payer BC, OTHER ==
--- NOTE | 2022-03-01 10:30 | US ---
EXAMINATION TYPE: US thyroid st tissue head/neck DATE OF EXAM: 03/01/2022 COMPARISON: Prior thyroid ultrasound July 03, 2021 CLINICAL HISTORY: E04.2 nontoxic multinodular goiter.Thyroid nodules. GLAND SIZE: Right Lobe: 5.6 x 1.8 x 2.3 cm Overall Parenchyma: heterogenous Left Lobe: 4.9 x 1.0 x 2.2 cm Overall Parenchyma: heterogeneous Isthmus Thickness: cm NODULES RIGHT: # of nodules measured on right: 2 1. 2.0 X 1.2 x 1.6 cm, mid , solid or almost completely solid, hypoechoic nodule, which is wider th an tall, with smooth margins, without echogenic foci. Prior size: 1.8 x 1.0 x 1.6 cm 2. 2.2 X 1.4 x 1.9 cm, lower , solid or almost completely solid, hypoechoic nodule, which is wider than tall, with smooth margins, without echogenic foci. Prior size: 2.3 x 1.7 x 2.2 cm LEFT: # of nodules measured on left: 1 1. 1.1 X .7 x .8 cm, upper , solid or almost completely solid, isoechoic nodule, which is wider romi n tall, with smooth margins, without echogenic foci. Prior size: 1.1 x .5 x .7 cm ISTHMUS: # of nodules measured in the isthmus: 0 Bilateral neck scanned, no evidence of lymphadenopathy. Persistent heterogeneous normal-sized thyroid with stable bilateral solid nodules as detailed above. IMPRESSION: As above. No significant change from prior.
== END | disposition home or self-care (01) ==
LOC: RADUSWWP 09:44
PROVIDERS: ATTEND Internal Medicine Endocrinology, Diabetes & Metabolism
DX: E04.2 Nontoxic multinodular goiter (principal)
CPT/HCPCS: 76536

== ENCOUNTER → 2022-11-07 | Outpatient (CLI) | payer OTHER ==
--- NOTE | 2022-11-07 15:55 | MM ---
Reason for Exam: Additional evaluation requested from prior study. Last mammogram was performed 1 year(s) and 1 month(s) ago. Patient History: Menarche at age 15. First Full-Term at age 34. Late child-bearing (after 30). Postmenopausal. Breast cancer, left, age 54. 02/01/2020, Lumpectomy on the Left side. 02/01/2020, Malignant Core Biopsy on the left side. 12/17/2019, MG discontinued stereo core LT on the left side. Maternal aunt had breast cancer, age 60. Mother had breast cancer, age 50. Prior Study Comparison: 04/15/2017 Bilateral Screening Mammogram, [facility]. 09/08/2018 Bilateral Screening Mammogram, [facility]. 09/10/2019 Bilateral Screening Mammogram, [facility]. 09/17/2019 Left Diagnostic Mammogram, [facility]. 03/14/2020 Bilateral Diagnostic Breast MRI, [facility]. 09/12/2020 Bilateral Diagnostic Mammogram, [facility]. 10/19/2021 Bilateral Diagnostic Mammogram, [facility]. Tissue Density: The breast tissue is heterogeneously dense. This may lower the sensitivity of mammography. Findings: Analyzed By CAD. Pattern appears stable. Lumpectomy changes in the upper outer left breast is present. No suspicious groups of microcalcifications, spiculated or lobular masses, architectural distortion or other secondary signs of malignancy are mammographically apparent. Overall Assessment: Benign, BI-RAD 2 Management: Screening Mammogram of both breasts in 1 year. A negative mammogram report should not preclude additional follow up of suspicious palpable abnormalities. Patient should continue monthly self breast exam. A clinical breast exam by your physician is recommended on an annual basis and results should be correlated with mammographic findings. Electronically signed and approved by: Yosvany Corona D.O. Radiologis
== END | disposition home or self-care (01) ==
LOC: RADMAMWWP 15:01
PROVIDERS: ATTEND Family Medicine
DX: R92.8 Other abnormal and inconclusive findings on diagnostic imaging of breast (principal); Z85.3 Personal history of malignant neoplasm of breast; Z78.0 Asymptomatic menopausal state; Z80.3 Family history of malignant neoplasm of breast
CPT/HCPCS: 77062; 77066

== ENCOUNTER → 2023-12-02 | Outpatient (CLI) | payer BC ==
--- NOTE | 2023-12-04 18:59 | MM ---
Reason for Exam: Screening (asymptomatic). Last mammogram was performed 1 year(s) and 1 month(s) ago. Patient History: Menarche at age 15. First Full-Term at age 34. Late child-bearing (after 30). Postmenopausal. Patient has history of breast feeding. Breast cancer, left, age 54. Previous chest radiation therapy at age 54. 02/01/2020, Lumpectomy on the Left side. 02/01/2020, Malignant Core Biopsy on the left side. 12/17/2019, MG discontinued stereo core LT on the left side. Maternal aunt had breast cancer, age 60. Mother had breast cancer, age 50. Prior Study Comparison: 09/12/2020 Bilateral Diagnostic Mammogram, [facility]. 10/19/2021 Bilateral Diagnostic Mammogram, [facility]. 11/07/2022 Bilateral MG 3D diag mammo w/cad NOHEMI, [facility]. Tissue Density: The breasts are heterogeneously dense, which may obscure small masses. Findings: Analyzed By CAD. Postsurgical and posttreatment changes left breast. There is no suspicious group of microcalcifications or new suspicious mass in either breast. Overall Assessment: Benign, BI-RAD 2 Management: Screening Mammogram of both breasts in 1 year. . Patient should continue monthly self-breast exams. A clinical breast exam by your physician is recommended on an annual basis. This exam should not preclude additional follow-up of suspicious palpable abnormalities. Note on Lima scores and lifetime risk: 1. A Lima score greater than 3% is considered moderate risk. If this is the case, consider specialist referral to assess eligibility for a risk reducing agent. 2. If overall lifetime risk for the development of breast cancer is 20% or higher, the patient may qualify for future screening with alternating mammogram and breast MRI. Electronically signed and approved by: Emeterio Kirkpatrick M.D. Radiologist
== END | disposition home or self-care (01) ==
LOC: RADMAMWWP 16:13
PROVIDERS: ATTEND Family Medicine
DX: Z12.31 Encounter for screening mammogram for malignant neoplasm of breast (principal); Z78.0 Asymptomatic menopausal state; Z80.3 Family history of malignant neoplasm of breast
CPT/HCPCS: 77063; 77067